=== PATIENT | female | born 1970 | race Caucasian/White ===

== ENCOUNTER 2016-07-20 09:10 | Emergency (ER) | payer OTHER ==
[~2016-07-20] VITALS: Ht 160 cm; Wt 109.3 kg
[~2016-07-20 09:10] MED LIST: ARIP1TAB5 PO; CARD240C6 PO; DESV25TA PO; DICL50TA3 PO; PRIL20CA9 PO
[2016-07-20 09:17] VITALS: BP 133/87; PULSE 79; RESP 16; TEMP 97.5; O2SAT 97
--- NOTE | 2016-07-20 09:44 | PD ---
HPI Chief Complaint: Skin Problem Time Seen by Provider: 09:26 Travel History International Travel<30 days: No Contact w/Intl Traveler<30days: No Traveled to known affect area: No History of Present Illness HPI This is a 45-year-old female who presents with pain, swelling and redness of her right elbow, constant since yesterday morning when she woke up with the symptoms, worsening throughout the day and the feeling like a burning sensation. She denies any associated fevers or chills. She's never had anything like this before. She thought maybe she got bit by something. Her has a history of MRSA. She is not on any immunosuppressive medications. PFSH Past Medical History Hx Anticoagulant Therapy: No Cardiovascular Problems: Yes (HTN) Diabetes: No Diminished Hearing: No Hypertension: Yes Neurologic: Yes (transverse myleitis) Psychiatric: Yes (mood disorder ) Tetanus Vaccination: > 5 Years Influenza Vaccination: No ?: Not Past Surgical History Hysterectomy: Yes Social History Alcohol Use: No Tobacco Use: Yes (1 ppd) Substance Use: No Allergies-Medications (Allergen,Severity, Reaction): Coded Allergies: No Known Allergies (Unverified , 07/20/16) Reported Meds & Prescriptions Reported Meds & Active Scripts Active Reported Contrave (Naltrexone-Bupropion) 8-90 Mg Tab 1 Tab PO BID Lisinopril 10 Mg Tab 10 Mg PO DAILY Cardizem CD 24 HR (Diltiazem CD 24 HR) 240 Mg Caper 240 Mg PO DAILY Prilosec (Omeprazole) 20 Mg Cap 20 Mg PO DAILY Review of Systems Except as stated in HPI: all other systems reviewed are Neg Physical Exam Narrative GENERAL:Well appearing, no acute distress SKIN: 10 x 10 cm area of warmth and erythema with no induration or fluctuance overlying the olecranon bursa extending down into the right forearm. HEAD: Atraumatic. Normocephalic. EYES: Pupils equal and round. No injection or drainage. ENT: Moist mucous membranes NECK: Trachea midline. CARDIOVASCULAR: Regular rate and rhythm. No murmur appreciated. RESPIRATORY: Clear to auscultation. Breath sounds equal bilaterally. GASTROINTESTINAL: Abdomen soft, non-tender, nondistended. MUSCULOSKELETAL: Full painless passive range of motion of the right elbow with no joint effusion. No fluctuance of the olecranon bursa but it is somewhat tender. NEUROLOGICAL: Awake and alert. No obvious cranial nerve deficits. Moving all extremities. PSYCHIATRIC: Appropriate mood and affect; insight and judgment normal. Data Data Last Documented VS Vital Signs Date Time Temp Pulse Resp B/P Pulse Ox O2 Delivery O2 Flow Rate FiO2 07/20/16 09:17 97.5 79 16 133/87 97 [facility] Medical Decision Making Medical Screen Exam Complete: Yes Emergency Medical Condition: Yes Interpretation(s) Afebrile Differential Diagnosis Cellulitis, olecranon bursitis, septic arthritis, sepsis Narrative Course This is a 45-year-old female who presents to the emergency department with 2 days of redness and warmth of her right elbow. She has a 10 x 10 cm area of cellulitis overlying the right elbow. She does have some tenderness of the olecranon bursa but no fluctuance and the cellulitis extends down to her forearm. I suspect this is more of a soft tissue infection then an acute bursitis. The area was marked and the patient will be started on antibiotics. I don't think she requires labs or further workup at this time and she is nontoxic appearing, has full range of motion of the elbow and I don't suspect a septic arthritis. I did advise her to return to the emergency department if she develops a fever or if her infection is worsening or spreading rapidly. She expressed understanding and is amenable to this plan. Diagnosis Primary Impression: Cellulitis of right elbow Patient Instructions: General Instructions Additional Instructions: If you develop fever, increasing redness, warmth, or spreading of your infection , or severe pain with moving the elbow, return to the emergency department immediately as you may require antibiotics through your IV. Complete your course of antibiotics as prescribed. Med/Other Pt SpecificInfo: Prescription(s) given Scripts Tramadol 50 Mg Tab50 Mg PO Q6H PRN (PAIN) #10 TAB Prov:Diana Penn MD 07/20/16 Clindamycin 300 Mg [id number] Mg PO TID 10 Days Prov:Diana Penn MD 07/20/16 Disposition: 01 DISCHARGE HOME Condition: Stable Diana Penn MD Jul 20, 2016 09:44
[2016-07-20] MEDS ORDERED: LISI10TA3 PO (09:45)
[2016-07-20] MEDS ORDERED: NALT1TAB3 PO (09:45)
[2016-07-20] MEDS ORDERED: CLINDAMYCIN PHOS 600 MG/4 ML VIAL IM ONE (09:45)
[2016-07-20] MEDS ORDERED: TRAM50TA PO (09:46)
[2016-07-20] MEDS ORDERED: CLIN1CAP6 PO (09:46)
[2016-07-20 10:39] VITALS: BP 132/86
== END 2016-07-20 10:40 | disposition home or self-care (01) ==
LOC: PHED 09:10
DX: L03.113 Cellulitis of right upper limb (principal); I10 Essential (primary) hypertension; F17.210 Nicotine dependence, cigarettes, uncomplicated
CPT/HCPCS: 96372

== ENCOUNTER 2017-01-03 20:45 | Emergency (ER) | payer OTHER, MEDICAID ==
[~2017-01-03] VITALS: Ht 160 cm; Wt 106.4 kg
[~2017-01-03 20:45] MED LIST changes: -ARIP1TAB5 PO; +CLIN1CAP6 PO; -DESV25TA PO; -DICL50TA3 PO; +LISI10TA3 PO; +NALT1TAB3 PO; +TRAM50TA PO
[2017-01-03 21:09] VITALS: BP 134/63; PULSE 82; RESP 18; TEMP 97.4; O2SAT 99
[2017-01-03] MEDS ORDERED: OMEP20TA PO (21:27)
[2017-01-03] MEDS ORDERED: FURO20TA PO (21:27)
[2017-01-03] MEDS ORDERED: POTA10TA2 PO (21:27)
[2017-01-03] MEDS ORDERED: POTA-163 PO (21:27)
--- NOTE | 2017-01-03 21:33 | PD ---
HPI Chief Complaint: musculoskeletal complaint Time Seen by Provider: 21:10 Travel History International Travel<30 days: No Contact w/Intl Traveler<30days: No History of Present Illness HPI 46-year-old female presents to the emergency room for evaluation of left knee pain after injuring it yesterday. Patient states she was standing at the store when she turned awkwardly. She heard a pop and felt immediate pain. States throughout the day it worsened with walking. It also caused her significant pain throughout the day today. Patient reports constant aching and worsening, sharp, severe pain with certain range of motion. Pain is localized to the left anterior patellar ligament. Denies paresthesias. She has been taking ibuprofen without any relief in symptoms. PFSH Past Medical History Hx Anticoagulant Therapy: No Cardiovascular Problems: Yes (HTN) Diabetes: No Diminished Hearing: No Hypertension: Yes Neurologic: Yes (transverse myleitis) Psychiatric: Yes (mood disorder ) Past Surgical History Hysterectomy: Yes Social History Alcohol Use: No Tobacco Use: Yes (1 ppd) Substance Use: No Allergies-Medications (Allergen,Severity, Reaction): Coded Allergies: No Known Allergies (Unverified , 07/20/16) Reported Meds & Prescriptions Reported Meds & Active Scripts Active Reported Furosemide 20 Mg Tab 20 Mg PO DAILY Potassium Chloride ER (Potassium Chloride) 10 Meq Tab 10 Meq PO DAILY Potassium Chloride ER (Potassium Chloride) 20 Meq Tab 20 Meq PO DAILY Omeprazole 20 Mg Tab 20 Mg PO DAILY Lisinopril 10 Mg Tab 10 Mg PO DAILY Cardizem CD 24 HR (Diltiazem CD 24 HR) 240 Mg Caper 240 Mg PO DAILY Review of Systems Except as stated in HPI: all other systems reviewed are Neg Physical Exam Narrative GENERAL: Well-nourished, well-developed female in no acute distress. Afebrile. Ambulatory. SKIN: Focused skin assessment warm/dry. No erythema or ecchymosis. HEAD: Normocephalic. EYES: No scleral icterus. No injection or drainage. NECK: Supple, trachea midline. No JVD or lymphadenopathy. CARDIOVASCULAR: Regular rate and rhythm without murmurs, gallops, or rubs. RESPIRATORY: Breath sounds equal bilaterally. No accessory muscle use. EXTREMITY: No obvious edema. Tenderness to palpation below the patella. No obvious deformity. 2+ dorsalis pedis pulse. Full range of motion of the left knee. Data Data Last Documented VS Vital Signs Date Time Temp Pulse Resp B/P Pulse Ox O2 Delivery O2 Flow Rate FiO2 01/03/17 21:09 97.4 82 18 134/63 99 Orders Knee, Complete (4vws) (01/03/17 ) [facility] Medical Decision Making Medical Screen Exam Complete: Yes Emergency Medical Condition: Yes Medical Record Reviewed: Yes Differential Diagnosis Sprain, fracture, dislocation, strain, muscle spasm Narrative Course 46-year-old female presents to the emergency room for evaluation of left knee pain after twisting her knee yesterday. She has been ambulatory since onset. Ibuprofen has not improved pain. Left lower extremity is neurovascularly intact with 2+ dorsalis pedis pulse. Full range of motion. No obvious edema, erythema, or ecchymosis. There is extreme tenderness to palpation over the left patellar tendon. Patient was informed x-ray will likely show no abnormality and that she will need to follow up with her primary care physician for outpatient MRI if symptoms persist. X-ray is negative. Patient placed in Sanchez wrap and discharged with orthopedic instructions and told to follow-up with her PCP or return for worsening symptoms. She understands and agrees to plan. Diagnosis Primary Impression: Left knee sprain Qualified Code: S83.92XA - Sprain of left knee, unspecified ligament, initial encounter Referrals: Primary Care Physician Patient Instructions: Knee Sprain (ED) Additional Instructions: Rest and drink plenty of fluids. Take ibuprofen with food as directed, as needed for pain. Elevate and apply ice to the affected area for 20 minutes at a time, as needed for pain and swelling. Follow-up with a primary care physician. Return to the emergency room for worsening symptoms. Med/Other Pt SpecificInfo: Prescription(s) given Disposition: 01 DISCHARGE HOME Condition: Stable Nilam Campo Jan 03, 2017 21:33
--- NOTE | 2017-01-03 22:02 | RADRPT ---
EXAM DATE/TIME: 01/03/2017 21:28 [facility] COMPARISON: No previous studies available for comparison. INDICATIONS : Left knee pain. MEDICAL HISTORY : Transverse Myelitis, Cardiac arrest SURGICAL HISTORY : Hysterectomy. Cardiac catheterization. ENCOUNTER: Initial ACUITY: 2 days PAIN SCORE: 9/10 LOCATION: Left knee FINDINGS: Four view examination of the left knee demonstrates no evidence of fracture or dislocation. Bony min eralization is normal. Mild degenerative changes without fracture. The suprapatellar soft tissues linares ve a normal configuration. CONCLUSION: Mild osteoarthritis without fracture. Rex Escudero MD on January 03, 2017 at 22:00 Board Certified Radiologist. This report was verified electronically.
== END 2017-01-03 22:31 | disposition home or self-care (01) ==
LOC: PHEFT 20:45
DX: S83.92XA Sprain of unspecified site of left knee, initial encounter (principal); X50.1XXA Overexertion from prolonged static or awkward postures, initial encounter; Y93.89 Activity, other specified; Y92.512 Supermarket, store or market as the place of occurrence of the external cause; I10 Essential (primary) hypertension; F17.210 Nicotine dependence, cigarettes, uncomplicated
CPT/HCPCS: 73564; 99283

== ENCOUNTER 2017-02-14 16:24 | Inpatient (IN) | payer OTHER, MEDICAID, MEDICARE ==
[~2017-02-14] VITALS: Ht 160 cm; Wt 112.3 kg
[~2017-02-14 16:24] MED LIST changes: -CLIN1CAP6 PO; +FURO20TA PO; -NALT1TAB3 PO; +OMEP20TA PO; +POTA-163 PO; +POTA10TA2 PO; -PRIL20CA9 PO; -TRAM50TA PO
[2017-02-14] MEDS ORDERED: GADODIAMIDE PF 287 MG/ML 20 ML VIAL (for RAD MRI) IVCONTRAST ONE (16:25)
[2017-02-14 16:30] VITALS: BP 137/67; PULSE 83; RESP 17; TEMP 97.7; O2SAT 95
[2017-02-14] MEDS ORDERED: VOLT100T PO (16:52)
[2017-02-14] MEDS ORDERED: LYRI200C PO (16:52)
[2017-02-14] MEDS ORDERED: POTA-163 PO (16:54)
[2017-02-14] MEDS ORDERED: FURO1TAB62 PO (16:54)
[2017-02-14] MEDS ORDERED: MEDR4PAK PO (16:56)
--- NOTE | 2017-02-14 16:58 | PD ---
HPI Chief Complaint: General Weakness Time Seen by Provider: 16:36 Travel History International Travel<30 days: No Contact w/Intl Traveler<30days: No Traveled to known affect area: No History of Present Illness HPI This 46-year-old female is complaining of generalized weakness. She says that about 10 years ago she had transverse myelitis. She was admitted to the hospital and had a fairly good recovery. At that time her left side was weaker than her right. She was not able to walk. Last Thursday she started having some electric shock sensations in her arm, especially her left arm. She has noted increasing weakness of the arm and the leg. She went to see her primary care doctor on Thursday and was started on a Medrol Dosepak. She was on his on the fifth day of the Medrol Dosepak. She was treated in [facility] at that time. Today she has had some incontinence of urine on 2 occasions. She has not had incontinence before. Her previous episode was 10 years ago in [place]. She was treated with a steroid drip and had a fairly prompt improvement. She did not have a complete recovery and she generally walks with a limp. 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 She was not diagnosed with multiple sclerosis at that time she does say her face was effected at that time [facility] Past Medical History Hx Anticoagulant Therapy: No Cardiac Catheterization: Yes Cardiovascular Problems: Yes (heart attack) Diabetes: No Diminished Hearing: No Hypertension: Yes Neurologic: Yes (transverse myleitis) Psychiatric: Yes (mood disorder ) Tubal Ligation: Yes Past Surgical History Genitourinary Surgery: Yes (bladder sling) Hysterectomy: Yes Social History Alcohol Use: No Tobacco Use: Yes (1 ppd) Substance Use: No Allergies-Medications (Allergen,Severity, Reaction): Coded Allergies: No Known Allergies (Unverified , 02/14/17) Reported Meds & Prescriptions Reported Meds & Active Scripts Active Reported Medrol Dosepak (Methylprednisolone) 4 Mg Dspk 4 Mg PO DIRECTED Per Pharmacist direction Potassium Chloride ER (Potassium Chloride) 20 Meq Tab 20 Meq PO DIRECTED Takes PRN for edema Lasix (Furosemide) 20 Mg Tab 20 Mg PO DIRECTED Takes PRN for edema Voltaren-Xr (Diclofenac Sodium) 100 Mg Tab.er.24h 1 Tab PO DAILY PRN Lyrica (Pregabalin) 200 Mg Cap 200 Mg PO TID Omeprazole 20 Mg Tab 40 Mg PO DAILY Lisinopril 10 Mg Tab 20 Mg PO BID Cardizem CD 24 HR (Diltiazem CD 24 HR) 240 Mg Caper 240 Mg PO DAILY Review of Systems General / Constitutional: No: Fever, Chills Eyes: No: Diploplia, Blurred Vision HENT: No: Headaches Cardiovascular: No: Chest Pain or Discomfort, Palpitations Respiratory: No: Cough, Shortness of Breath Gastrointestinal: No: Vomiting, Diarrhea Genitourinary: Positive: Urgency, Frequency, Incontinence Musculoskeletal: Positive: Weakness Physical Exam Narrative GENERAL: Well-developed female SKIN: Focused skin assessment warm/dry. HEAD: Atraumatic. Normocephalic. EYES: Pupils equal and round. No scleral icterus. No injection or drainage. ENT: No nasal bleeding or discharge. Mucous membranes pink and moist. NECK: Trachea midline. No JVD. CARDIOVASCULAR: Regular rate and rhythm. No murmur appreciated. RESPIRATORY: No accessory muscle use. Clear to auscultation. Breath sounds equal bilaterally. GASTROINTESTINAL: Abdomen soft, non-tender, nondistended. Hepatic and splenic margins not palpable. MUSCULOSKELETAL: No obvious deformities. No clubbing. No cyanosis. No edema. NEUROLOGICAL: Awake and alert. No obvious cranial nerve deficits. She has 4 over 5 weakness of the arms and the legs, the left side is weaker than the right. There is a left sided sensory deficit involving the trunk and the arms and the legs PSYCHIATRIC: Appropriate mood and affect; insight and judgment normal. Data Data Last Documented VS Vital Signs Date Time Temp Pulse Resp B/P (MAP) Pulse Ox O2 Delivery O2 Flow Rate FiO2 02/14/17 20:08 64 16 112/57 (75) 95 Room Air 02/14/17 16:30 97.7 Orders Orders Electrocardiogram (02/14/17 16:58) Complete Blood Count With Diff (02/14/17 16:58) Comprehensive Metabolic Panel (02/14/17 16:58) Prothrombin Time / Inr (Pt) (02/14/17 16:58) Act Partial Throm Time (Ptt) (02/14/17 16:58) Urinalysis - C+S If Indicated (02/14/17 16:58) Westergren Sedimentation Rate (02/14/17 16:58) Magnesium (Mg) (02/14/17 16:58) Thyroid Stimulating Hormone (02/14/17 16:58) Mri Brain W&W/O Contrast (02/14/17 17:00) Mri C Spine W&W/O Contrast (02/14/17 ) Urinary Catheter Insert/Apply (02/14/17 17:10) Phenazopyridine (Pyridium) (02/14/17 17:45) Urine Culture (02/14/17 17:20) Methylprednisolone So Succ Inj (Solumedr (02/14/17 20:15) Labs Laboratory Tests Test 02/14/17 17:10 02/14/17 17:20 White Blood Count 8.5 TH/MM3 Red Blood Count 3.76 MIL/MM3 Hemoglobin 12.0 GM/DL Hematocrit 36.3 % Mean Corpuscular Volume 96.6 FL Mean Corpuscular Hemoglobin 32.0 PG Mean Corpuscular Hemoglobin Concent 33.1 % Red Cell Distribution Width 12.8 % Platelet Count 195 TH/MM3 Mean Platelet Volume 10.1 FL Neutrophils (%) (Auto) 75.6 % Lymphocytes (%) (Auto) 14.5 % Monocytes (%) (Auto) 7.5 % Eosinophils (%) (Auto) 0.1 % Basophils (%) (Auto) 2.3 % Neutrophils # (Auto) 6.5 TH/MM3 Lymphocytes # (Auto) 1.2 TH/MM3 Monocytes # (Auto) 0.6 TH/MM3 Eosinophils # (Auto) 0.0 TH/MM3 Basophils # (Auto) 0.2 TH/MM3 CBC Comment DIFF FINAL Differential Comment Erythrocyte Sedimentation Rate 2 mm/hr Prothrombin Time 10.3 SEC Prothromb Time International Ratio 0.9 RATIO Activated Partial Thromboplast Time 24.3 SEC Blood Urea Nitrogen 17 MG/DL Creatinine 0.70 MG/DL Random Glucose 88 MG/DL Total Protein 6.5 GM/DL Albumin 3.3 GM/DL Calcium Level 8.4 MG/DL Magnesium Level 2.1 MG/DL Alkaline Phosphatase 45 U/L Aspartate Amino Transf (AST/SGOT) 28 U/L Alanine Aminotransferase (ALT/SGPT) 15 U/L Total Bilirubin 0.3 MG/DL Sodium Level 139 MEQ/L Potassium Level 4.6 MEQ/L Chloride Level 107 MEQ/L Carbon Dioxide Level 24.3 MEQ/L Anion Gap 8 MEQ/L Estimat Glomerular Filtration Rate 89 ML/MIN Thyroid Stimulating Hormone 3rd Gen 1.990 uIU/ML Urine Collection Type CLEAN CATCH Urine Color STRAW Urine Turbidity SLIGHT Urine pH 6.5 Urine Specific [place] 1.013 Urine Protein NEG mg/dL Urine Glucose (UA) NEG mg/dL Urine Ketones NEG mg/dL Urine Occult Blood SMALL Urine Nitrite NEG Urine Bilirubin NEG Urine Leukocyte Esterase NEG Urine RBC 4-9 /hpf Urine WBC 0-2 /hpf Urine Squamous Epithelial Cells > 8 /hpf Urine Amorphous Sediment FEW Urine Bacteria MOD /hpf Microscopic Urinalysis Comment CULTURE INDICATED Urine Collection Time 1720 [facility] Medical Decision Making Medical Screen Exam Complete: Yes Emergency Medical Condition: Yes Medical Record Reviewed: Yes Differential Diagnosis Differential includes transverse myelitis, CVA, MS Narrative Course MRI of the brain and spinal cord were obtained. On the MRI of the brain there is no acute hemorrhage or mass or infarction. There are small scattered punctate areas of increased signal on the flare weighted images area isn't thought to be nonspecific. On the cervical spine there is some motion artifact. The cord is intact with no abnormal enhancement or focal lesion. Case discussed with Dr. Troy and we will initiate high-dose steroids Diagnosis Primary Impression: Acute weakness Admitting Information Admitting Physician Requests: Admit Babak Joy MD Feb 14, 2017 16:58
[2017-02-14 17:21] LABS: AUTOMATED NEUTROPHIL # 6.5 TH/MM3 (1.8-7.7); BASOPHIL # 0.2 TH/MM3 (0-0.2); BASOPHIL % 2.3 % (0.0-2.0); EOSINOPHIL % 0.1 % (0.0-4.0); HEMATOCRIT 36.3 % (35.0-46.0); HEMO FLAGS DIFF FINAL; LYMPH % 14.5 % (9.0-44.0); LYMPHOCYTE # 1.2 TH/MM3 (1.0-4.8); MEAN CELL VOLUME 96.6 FL (80.0-100.0); MEAN CORPUSCULAR HGB CONC 33.1 % (32.0-36.0); MONO % 7.5 % (0.0-8.0); NEUT % 75.6 % (16.0-70.0); PLATELET COUNT 195 TH/MM3 (150-450); RED BLOOD COUNT 3.76 MIL/MM3 (4.00-5.30); RED CELL DISTRIBUTION WIDTH 12.8 % (11.6-17.2); WHITE BLOOD COUNT 8.5 TH/MM3 (4.0-11.0)
[2017-02-14 17:40] LABS: BLOOD, URINE SMALL (NEG); GLUCOSE,URINE NEG (NEG); KETONE, URINE NEG (NEG); NITRITE,URINE NEG (NEG); PH, URINE 6.5 (5.0-8.5)
[2017-02-14 17:41] LABS: CHLORIDE 107 MEQ/L (98-107); SODIUM (NA) 139 MEQ/L (136-145)
[2017-02-14 17:42] LABS: METHOD OF COLLECTION CLEAN CATCH; URINE COLOR STRAW (YELLW/STRAW)
[2017-02-14 17:45] LABS: ANION GAP 8 MEQ/L (5-15); BICARBONATE 24.3 MEQ/L (21.0-32.0); BLOOD UREA NITROGEN 17 MG/DL (7-18); MAGNESIUM 2.1 MG/DL (1.5-2.5)
[2017-02-14 17:45] LABS: BACTERIA, URINE MOD /hpf; COMMENT (UR) CULTURE INDICATED; COMMENT2 (UR) MUCOUS PRESENT; CULTURE IF INDICATED CULTURE INDICATED; SQUAMOUS EPITHELIAL CELL URINE > 8 /hpf (0-5); WBC, URINE 0-2 /hpf (0-5)
[2017-02-14] MEDS ORDERED: PHENAZOPYRIDINE HCL 200 MG TAB PO ONE (17:45)
[2017-02-14 17:46] LABS: APTT (PATIENT) 24.3 SEC (24.3-30.1); INTERNATIONAL NORMALIZED RATIO 0.9 RATIO; PROTHROMBIN TIME - PATIENT 10.3 SEC (9.8-11.6)
[2017-02-14 17:48] LABS: ALT (GPT) 15 U/L (10-53); AST (GOT) 28 U/L (15-37); GLOMERULAR FILTRATION RATE 89 ML/MIN (>89); POTASSIUM 4.6 MEQ/L (3.5-5.1)
[2017-02-14 17:49] LABS: TOTAL BILIRUBIN ADULT 0.3 MG/DL (0.2-1.0)
[2017-02-14 17:51] LABS: ALKALINE PHOSPHATASE 45 U/L (45-117)
--- NOTE | 2017-02-14 19:45 | RADRPT ---
EXAM DATE/TIME: 02/14/2017 18:41 [facility] COMPARISON: No previous studies available for comparison. INDICATIONS : Extremity weakness. Transverse myelitis, left side weakness. CONTRAST: 20 cc Omniscan (gadodiamide) IV MEDICAL HISTORY : Cardiovascular disease Hypertension. SURGICAL HISTORY : Hysterectomy. Bladder sling ENCOUNTER: Initial ACUITY: 1 day PAIN SCORE: 0/10 LOCATION: neck TECHNIQUE: Multiplanar, multisequence MRI examination of the cervical spine was performed. FINDINGS: The study is diffusely degraded by motion artifact. VERTEBRAE: Normal vertebral body height. Homogeneous marrow signal. ALIGNMENT: No evidence of subluxation. CORD: Normal configuration and signal. POST FOSSA: The cerebellar tonsils are normal in position. POST-CONTRAST: No abnormal areas of enhancement are seen. C2-C3: The thecal sac has a normal configuration. There is no evidence of disc herniation or spinal canal stenosis. The neural foramina are patent bilaterally. C3-C4: The thecal sac has a normal configuration. There is no evidence of disc herniation or spinal canal s tenosis. The neural foramina are patent bilaterally. C4-C5: The thecal sac has a normal configuration. There is no evidence of disc herniation or spinal canal s tenosis. The neural foramina are patent bilaterally. C5-C6: There is an annular disc bulge with mass effect on the anterior thecal sac. There is no evidence of d isc herniation or spinal canal stenosis. The neural foramina are patent bilaterally. C6-C7: There is an annular disc bulge with mass effect on the anterior thecal sac.. There is no evidence of disc herniation or spinal canal stenosis. The neural foramina are patent bilaterally. C7-T1: The thecal sac has a normal configuration. There is no evidence of disc herniation or spinal canal s tenosis. The neural foramina are patent bilaterally. CONCLUSION: 1. Suboptimal exam which is diffusely degraded by motion artifact. 2. The cervical cord is intact in appearance with no abnormal enhancement or focal lesion identified. 3. Annular disc bulges at C5-6 and C6-7 with mass effect on the thecal sac and no definite mass effec t on the cord. Roly Lambert MD on February 14, 2017 at 19:39 Board Certified Radiologist. This report was verified electronically.
--- NOTE | 2017-02-14 19:55 | RADRPT ---
EXAM DATE/TIME: 02/14/2017 18:41 [facility] COMPARISON: No previous studies available for comparison. INDICATIONS : Left side weakness. CONTRAST: 20 cc Omniscan (gadodiamide) IV MEDICAL HISTORY : Hypertension. Cardiovascular disease SURGICAL HISTORY : Hysterectomy. Bladder sling ENCOUNTER: Initial ACUITY: 1 day PAIN SCORE: 0/10 LOCATION: cranial TECHNIQUE: Multiplanar, multisequence MRI of the brain was performed both prior to and following the administrat ion of paramagnetic contrast. FINDINGS: CEREBRUM: The ventricles are normal for age. No evidence of midline shift, mass lesion, hemorrhage or acute in farction. No extraaxial fluid collections are seen. The pituitary gland and suprasellar cistern are normal in configuration. WHITE MATTER: On the flair weighted images there are multiple small punctate areas of increased signal in the white matter. POSTERIOR FOSSA: The cerebellum and brainstem are intact. The 4th ventricle is midline. The cerebellopontine angle is unremarkable. The cerebellar tonsils are normal in position. DIFFUSION IMAGING: No focal areas of restricted diffusion are seen. No evidence of acute infarction. EXTRACRANIAL: The visualized portions of the orbits and paranasal sinuses are unremarkable. POST-CONTRAST: No abnormal areas of parenchymal or dural enhancement. No evidence of blood-brain barrier breakdown. CONCLUSION: 1. No acute hemorrhage, mass or infarction. 2. On the flair weighted images there are multiple small scattered punctate areas of increased signal which are nonspecific. These may represent chronic small vessel ischemic change. Demyelination is le ss likely. Roly Lambert MD on February 14, 2017 at 19:51 Board Certified Radiologist. This report was verified electronically.
[2017-02-14 20:08] VITALS: BP 112/57; PULSE 64; RESP 16; O2SAT 95
[2017-02-14] MEDS ORDERED: methylPREDNISolone SO SUCC INJ 500 MG in DEXTROSE 5% IN WATER 100ML INJ 100 ML IV ONE ×2 (20:15)
[2017-02-14] MEDS ORDERED: LACTULOSE SYRUP 20 GM/30 ML CUP PO PRN (20:30)
[2017-02-14] MEDS ORDERED: MAGNESIUM HYDROXIDE SUSP 30 ML CUP PO PRN (20:30)
[2017-02-14] MEDS ORDERED: ACETAMINOPHEN 325 MG TAB PO PRN (20:30)
[2017-02-14] MEDS ORDERED: SENNOSIDES 8.6 MG TAB PO PRN (20:30)
[2017-02-14] MEDS ORDERED: ONDANSETRON HCL 4 MG/2 ML VIAL IVP PRN (20:30)
[2017-02-14] MEDS ORDERED: BISACODYL 10 MG SUPP RECTAL PRN (20:30)
[2017-02-14] MEDS ORDERED: SODIUM CHLORIDE 0.9% FLUSH 10 ML FLUSH IV FLUSH PRN (20:30)
[2017-02-14] MEDS: SODIUM CHLORIDE 0.9% FLUSH 10 ML FLUSH IV FLUSH SCH (21:00)
[2017-02-14 21:23] VITALS: BP 150/82; PULSE 72; RESP 18; TEMP 95.9; O2SAT 98
[2017-02-14] MEDS: LISINOPRIL 20 MG TAB PO SCH (21:48)
[2017-02-14] MEDS: SODIUM CHLOR 0.9% 1000 ML INJ 1,000 ML IV SCH (21:48)
[2017-02-14] MEDS: DOCUSATE SODIUM 50 MG/SENNA 8.6 MG TAB PO SCH (21:48)
[2017-02-14] MEDS: LORazepam 2 MG/ML VIAL IV PUSH PRN (21:49)
[2017-02-15 00:57] VITALS: BP 129/75; PULSE 76; RESP 16; TEMP 96.4; O2SAT 93
[2017-02-15] MEDS: ACETAMINOPHEN/HYDROcodone 325 MG/5 MG TAB PO PRN ×3 (02:42→17:51)
[2017-02-15 07:21] LABS: AUTOMATED NEUTROPHIL # 4.8 TH/MM3 (1.8-7.7); BASOPHIL % 0.6 % (0.0-2.0); EOSINOPHIL % 0.1 % (0.0-4.0); HEMATOCRIT 37.2 % (35.0-46.0); LYMPH % 15.4 % (9.0-44.0); LYMPHOCYTE # 0.9 TH/MM3 (1.0-4.8); MEAN CELL VOLUME 96.5 FL (80.0-100.0); MEAN CORPUSCULAR HEMOGLOBIN 31.4 PG (27.0-34.0); MEAN CORPUSCULAR HGB CONC 32.5 % (32.0-36.0); MONO % 1.1 % (0.0-8.0); NEUT % 82.8 % (16.0-70.0); PLATELET COUNT 171 TH/MM3 (150-450); RED BLOOD COUNT 3.86 MIL/MM3 (4.00-5.30); RED CELL DISTRIBUTION WIDTH 12.7 % (11.6-17.2); WHITE BLOOD COUNT 5.8 TH/MM3 (4.0-11.0)
[2017-02-15 07:30] LABS: HEMO FLAGS DIFF FINAL
[2017-02-15 07:33] LABS: CHLORIDE 105 MEQ/L (98-107); POTASSIUM 3.9 MEQ/L (3.5-5.1); SODIUM (NA) 139 MEQ/L (136-145)
[2017-02-15 07:37] LABS: ANION GAP 8 MEQ/L (5-15); BICARBONATE 25.8 MEQ/L (21.0-32.0); BLOOD UREA NITROGEN 16 MG/DL (7-18)
[2017-02-15 07:40] LABS: ALT (GPT) 14 U/L (10-53); AST (GOT) 6 U/L (15-37); GLOMERULAR FILTRATION RATE 88 ML/MIN (>89)
[2017-02-15 07:42] LABS: TOTAL BILIRUBIN ADULT 0.3 MG/DL (0.2-1.0)
[2017-02-15 07:43] LABS: ALKALINE PHOSPHATASE 43 U/L (45-117)
[2017-02-15 08:00] VITALS: BP 139/86; PULSE 61; RESP 20; TEMP 97.6; O2SAT 93
[2017-02-15] MEDS: SODIUM CHLOR 0.9% 1000 ML INJ 1,000 ML IV SCH ×2 (08:07→19:58)
[2017-02-15] MEDS: DOCUSATE SODIUM 50 MG/SENNA 8.6 MG TAB PO SCH ×2 (08:09→19:59)
[2017-02-15] MEDS: PANTOPRAZOLE SOD 40 MG DELAYED RELEASE TAB PO SCH (08:09)
[2017-02-15] MEDS: DILTIAZEM-CD 240 MG CAP ER PO SCH (08:09)
[2017-02-15] MEDS: LISINOPRIL 20 MG TAB PO SCH ×2 (08:09→19:59)
[2017-02-15] MEDS: SODIUM CHLORIDE 0.9% FLUSH 10 ML FLUSH IV FLUSH SCH ×2 (08:10→19:58)
[2017-02-15] MEDS: FUROSEMIDE 20 MG TAB PO SCH (08:10)
[2017-02-15] MEDS: PREGABALIN 100 MG CAP PO SCH ×3 (08:10→17:48)
--- NOTE | 2017-02-15 08:42 | HHI.HP ---
HPI Service [facility] Hospitalists Primary Care Physician Non-Staff Admission Diagnosis ACUTE WEAKNESS, POSS MYELOPATHY Diagnoses: (1) Neurological complaint Diagnosis: Principal (2) Hypertension Diagnosis: Secondary Chief Complaint: Paresthesia, weakness. Travel History International Travel<30 Days: No Contact w/Intl Traveler <30 Da: No Traveled to Known Affected Are: No History of Present Illness Written by Abraham Mtz, acting as scribe for Dr. Arteaga on 02/15/17 at 08: 32. 46-year-old female with known history of hypertension, chronic smoker , irritable bowel syndrome, history of transverse myelitis who presented to hospital because of one week history of neurological symptoms. She states that a week ago she started developing paresthesia and achy sensation in her left arm , leg heaviness whenever she ambulated. She went to her primary medical doctor and was given a Medrol Dosepak, she is on her fifth day and she did not have any significant improvement. She started developing some urinary urgency with which he described is sensation of not completely emptying her bladder. She states that she has transverse myelitis in her last acute episode was 10 years ago. She indicates that her symptoms she is experiencing now is the same as she had first diagnosis of her condition. Patient has received IV steroids and she states that she is feeling much better. Symptoms are almost completely resolved. Patient denies any headache, visual disturbances, dysphagia, she has chronic ambulation issues with walking with the lab, however no acute unilateral numbness or disequilibrium. Denies any loss of bowel control. Patient had workup done emergency department, ER physician did speak with neurologist on-call who recommended IV steroids. Review of Systems Genitourinary: COMPLAINS OF: Urinary incontinence, Urgency Neurologic: COMPLAINS OF: Abnormal gait, Localized weakness, Paresthesias Except as stated in HPI: all other systems reviewed are Neg Past Family Social History Past Medical History Hypertension History of transverse myelitis Chronic smoker, irritable bowel syndrome History of myocardial infarction Past Surgical History Cardiac catheterization with normal findings Bladder sling Tubal ligation Hysterectomy Allergies: Coded Allergies: No Known Allergies (Unverified , 02/14/17) Family History Father alive is 70 years old with history of prostate cancer, mother alive at age 68 with lupus, diabetes, thyroid Social History Patient continues to smoke one pack a cigarettes a day since she was 15 years old. She denies any alcohol or illicit drugs Physical Exam Vital Signs Vital Signs Date Time Temp Pulse Resp B/P (MAP) Pulse Ox O2 Delivery O2 Flow Rate FiO2 02/15/17 04:56 02/15/17 00:57 96.4 76 16 129/75 (93) 93 02/14/17 21:23 95.9 72 18 150/82 (104) 98 02/14/17 21:10 62 18 95 02/14/17 20:08 64 16 112/57 (75) 95 Room Air 02/14/17 16:30 97.7 83 17 137/67 (90) 95 Physical Exam GENERAL: Well-developed, well-nourished, in no acute distress. alert and orientated HEENT: Head is normocephalic without any lesions or masses noted. Facial features are symmetric. Eyes: Pupils equal round reactive to light. Extraocular muscles are intact. Conjunctivae were clear. Oropharyngeal: Pharynx without any erythema edema. Tongue is midline without deviation. Buccal mucosa is moist without any masses or lesions NECK: Supple without any masses. Trachea midline no deviation. No JVD, no bruits are appreciated CARDIAC: Regular rhythm, regular rate. S1/S2 are heard. No murmurs gallops or rubs. LUNGS: Clear to auscultation bilaterally. No wheeze, rhonchi or rales. No use of accessory muscles on inspiration or expiration. ABDOMEN: Soft, nontender. Nondistended. Bowel sounds heard in all 4 quadrants. No organomegaly or masses. Negative rebound, negative guarding EXTREMITIES: No edema, pulses are equal bilaterally. No cyanosis or clubbing NEUROLOGY: Mood and affect appear appropriate. Cranial nerves II through XII grossly intact. Muscle strength 5/5 in upper and lower extremities bilaterally. Deep tendon reflexes are 2+ in upper and lower extremities bilaterally. Laboratory Laboratory Tests Test 02/14/17 17:10 02/14/17 17:20 02/15/17 06:20 White Blood Count 8.5 5.8 Red Blood Count 3.76 3.86 Hemoglobin 12.0 12.1 Hematocrit 36.3 37.2 Mean Corpuscular Volume 96.6 96.5 Mean Corpuscular Hemoglobin 32.0 31.4 Mean Corpuscular Hemoglobin Concent 33.1 32.5 Red Cell Distribution Width 12.8 12.7 Platelet Count 195 171 Mean Platelet Volume 10.1 10.1 Neutrophils (%) (Auto) 75.6 82.8 Lymphocytes (%) (Auto) 14.5 15.4 Monocytes (%) (Auto) 7.5 1.1 Eosinophils (%) (Auto) 0.1 0.1 Basophils (%) (Auto) 2.3 0.6 Neutrophils # (Auto) 6.5 4.8 Lymphocytes # (Auto) 1.2 0.9 Monocytes # (Auto) 0.6 0.1 Eosinophils # (Auto) 0.0 0.0 Basophils # (Auto) 0.2 0.0 CBC Comment DIFF FINAL DIFF FINAL Differential Comment Erythrocyte Sedimentation Rate 2 Prothrombin Time 10.3 Prothromb Time International Ratio 0.9 Activated Partial Thromboplast Time 24.3 Blood Urea Nitrogen 17 16 Creatinine 0.70 0.71 Random Glucose 88 111 Total Protein 6.5 6.2 Albumin 3.3 3.2 Calcium Level 8.4 8.7 Magnesium Level 2.1 Alkaline Phosphatase 45 43 Aspartate Amino Transf (AST/SGOT) 28 6 Alanine Aminotransferase (ALT/SGPT) 15 14 Total Bilirubin 0.3 0.3 Sodium Level 139 139 Potassium Level 4.6 3.9 Chloride Level 107 105 Carbon Dioxide Level 24.3 25.8 Anion Gap 8 8 Estimat Glomerular Filtration Rate 89 88 Thyroid Stimulating Hormone 3rd Gen 1.990 Urine Collection Type CLEAN CATCH Urine Color STRAW Urine Turbidity SLIGHT Urine pH 6.5 Urine Specific Knapp 1.013 Urine Protein NEG Urine Glucose (UA) NEG Urine Ketones NEG Urine Occult Blood SMALL Urine Nitrite NEG Urine Bilirubin NEG Urine Leukocyte Esterase NEG Urine RBC 4-9 Urine WBC 0-2 Urine Squamous Epithelial Cells > 8 Urine Amorphous Sediment FEW Urine Bacteria MOD Microscopic Urinalysis Comment CULTURE INDICATED Urine Collection Time 1720 Date/Time Source Procedure Growth Status 02/14/17 17:20 Urine Clean Catch Urine Culture Pending Received Result Diagram: 02/15/17 0620 02/15/17 0620 Imaging Last Impressions Brain MRI 02/14/17 1700 Signed Impressions: Service Date/Time: Tuesday, February 14, 2017 18:41 - CONCLUSION: 1. No acute hemorrhage, mass or infarction. 2. On the flair weighted images there are multiple small scattered punctate areas of increased signal which are nonspecific. These may represent chronic small vessel ischemic change. Demyelination is less likely. Roly Lambert MD Cervical Spine MRI 02/14/17 0000 Signed Impressions: Service Date/Time: Tuesday, February 14, 2017 18:41 - CONCLUSION: 1. Suboptimal exam which is diffusely degraded by motion artifact. 2. The cervical cord is intact in appearance with no abnormal enhancement or focal lesion identified. 3. Annular disc bulges at C5-6 and C6-7 with mass effect on the thecal sac and no definite mass effect on the cord. Roly Lambert MD Caprini VTE Risk Assessment Caprini VTE Risk Assessment: No/Low Risk (score <= 1) Caprini Risk Assessment Model Point Value = 1 Point Value = 2 Point Value = 3 Point Value = 5 Age 41-60 Minor surgery BMI > 25 kg/m2 Swollen legs Varicose veins or History of unexplained or recurrent spontaneous Oral contraceptives or hormone replacement Sepsis (< 1 month) Serious lung disease, including pneumonia (< 1 month) Abnormal pulmonary function Acute myocardial infarction Congestive heart failure (< 1 month) History of inflammatory bowel disease Medical patient at bed rest Age 61-74 Arthroscopic surgery Major open surgery (> 45 min) Laparoscopic surgery (> 45 min) Malignancy Confined to bed (> 72 hours) Immobilizing plaster cast Central venous access Age >= 75 History of VTE Family history of VTE Factor V Leiden Prothrombin [id number] Lupus anticoagulant Anticardiolipin antibodies Elevated serum homocysteine Heparin-induced thrombocytopenia Other congenital or acquired thrombophilia Stroke (< 1 month) Elective arthroplasty Hip, pelvis, or leg fracture Acute spinal cord injury (< 1 month) Prophylaxis Regimen Total Risk Factor Score Risk Level Prophylaxis Regimen 0-1 Low Early ambulation 2 Moderate Order ONE of the following: *Sequential Compression Device (SCD) *Heparin 5000 units SQ BID 3-4 Higher Order ONE of the following medications: *Heparin 5000 units SQ TID *Enoxaparin/Lovenox 40 mg SQ daily (WT < 150 kg, CrCl > 30 mL/min) *Enoxaparin/Lovenox 30 mg SQ daily (WT < 150 kg, CrCl > 10-29 mL/min) *Enoxaparin/Lovenox 30 mg SQ BID (WT < 150 kg, CrCl > 30 mL/min) AND/OR *Sequential Compression Device (SCD) 5 or more Highest Order ONE of the following medications: *Heparin 5000 units SQ TID (Preferred with Epidurals) *Enoxaparin/Lovenox 40 mg SQ daily (WT < 150 kg, CrCl > 30 mL/min) *Enoxaparin/Lovenox 30 mg SQ daily (WT < 150 kg, CrCl > 10-29 mL/min) *Enoxaparin/Lovenox 30 mg SQ BID (WT < 150 kg, CrCl > 30 mL/min) AND *Sequential Compression Device (SCD) Assessment and Plan Problem List: (1) Neurological complaint ICD Code: R29.90 - Unspecified symptoms and signs involving the nervous system Plan: Patient with known history of transverse myelitis, presented with multiple symptoms to include left arm paresthesia, weakness, lower extremity leg heaviness, urinary incontinence. Patient indicates these are same symptoms that she experienced 10 years ago when she had her first episode of transverse myelitis. Patient had MRI performed which did not indicate any acute neurological etiology. Patient has been given steroid infusion 1 with significant improvement of her symptoms. Neurology has been consulted for further recommendations. Further plans per neurology (2) Hypertension ICD Code: I10 - Essential (primary) hypertension Plan: Blood pressure stable this time. Home medications have been continued Assessment and Plan DVT prevention: Sequential compression devices Physician Certification 2 Midnight Certification Type: Admission for Inpatient Services Order for Inpatient Services The services are ordered in accordance with Medicare regulations or non- Medicare payer requirements, as applicable. In the case of services not specified as inpatient-only, they are appropriately provided as inpatient services in accordance with the 2-midnight benchmark. Estimated LOS (days): 2 days is the estimated time the patient will need to remain in the hospital, assuming treatment plan goals are met and no additional complications. Post-Hospital Plan: Not yet determined Medical Decision Making Impression and Plan This note was transcribed by mally ernandez I, Dr. Zuleima Arteaga personally performed the history, physical exam, and medical decision making; and confirmed the accuracy of the information in the transcribed note. Authenticated by Dr. Zuleima Arteaga on 02/15/17 at 08:44. Problem Qualifiers (1) Hypertension: Qualified Codes: I10 - Essential (primary) hypertension Abraham Mtz Feb 15, 2017 08:42 Zuleima Arteaga MD Feb 15, 2017 08:44
[2017-02-15] MEDS ORDERED: methylPREDNISolone SOD SUCC 125 MG/2 ML VIAL IV PUSH SCH (09:00)
--- NOTE | 2017-02-15 09:22 | EKG ---
Date Performed: 02/14/2017 Time Performed: 17:13:20 PTAGE: 46 years EKG: Sinus rhythm NORMAL ECG NO PREVIOUS TRACING DOCTOR: Prabhjot Mahoney Interpretating Date/Time 02/15/2017 09:21:00
[2017-02-15] MEDS: methylPREDNISolone SO SUCC INJ 500 MG in DEXTROSE 5% IN WATER 100ML INJ 100 ML IV SCH ×4 (09:35→19:58)
[2017-02-15] MEDS: LORazepam 2 MG/ML VIAL IV PUSH PRN ×3 (09:36→19:59)
--- NOTE | 2017-02-15 10:49 | MB ---
cc: KRISTIAN WARREN M.D. DATE OF CONSULTATION: 02/15/2017. REASON FOR CONSULTATION: Transverse myelitis. HISTORY OF PRESENT ILLNESS: The patient a pleasant 46-year-old woman with history hypertension, irritable bowel syndrome, history of transverse myelitis who had been extensively evaluated in [place] I am told who comes in because of paresthesias in the left arm and leg with heaviness of the leg. She was given a Medrol Dosepak by her primary care doctor but did not improve and came into the hospital. She also had trouble voiding her bladder. They had to straight cath her and there was quite a bit of urine, she states, over 1200 cc. She is doing much better this morning after two doses of Solu-Medrol. She is actually walking a lot better. Her symptoms in the arms have improved. PAST MEDICAL HISTORY: She has a history as stated with an addition of possible myocardial infarction. PAST SURGICAL HISTORY: 1. Cardiac catheterization normal. 2. Bladder sling. 3. Tubal ligation. 4. Hysterectomy. SOCIAL HISTORY: She is . She is a chronic smoker. She smokes one pack of cigarettes a day. No alcohol. No drugs. ALLERGIES: None reported. FAMILY HISTORY: Father history of prostate cancer. Mother lupus, diabetes, thyroid. PHYSICAL EXAMINATION: VITAL SIGNS: Temperature is 97.6, pulse 61, respiratory rate 18, blood pressure 139/86. NECK: The neck is supple. HEART: Regular. NEUROLOGICAL EXAMINATION: She is awake and alert and she is oriented and fluent. The pupils are reactive. Face symmetrical. Tongue midline. 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 There is no drift. No leg lag. She has decreased sensory on the left compared to the right. She does have a right Gabby's and slightly brisk reflexes in the extremities with no clonus. Cerebellar testing normal. Gait is withheld for physical therapy. LABORATORY STUDIES: Her labs are reviewed. Sedimentation rate is 2. CBC reviewed as well. Chemistries: Albumin 3.2. TSH 1.990. GFR 88, glucose 111. Coag panel normal. Urine - small occult blood. Culture is indicated and is pending. IMAGING STUDIES: Brain MRI did not see anything acute. Cervical spine - there was no abnormal enhancement but I do see of old signs of a transverse myelitis of C3-C5. IMPRESSION: Recurring symptoms in a patient with transverse myelitis. PLAN: 1. Continue Solu-Medrol 500 milligrams q.12 h for a total of three days six doses. 2. Physical therapy evaluation. 3. Occupational therapy evaluation. 4. If stable can be discharged in 24 hours and have her follow up as an outpatient with neurology. 5. Continue current care as outlined. Discussed with the patient. MD SANTA Wolf/AGATHA /10:25 AM /10:38 AM
[2017-02-15 12:00] VITALS: BP 131/74; PULSE 77; RESP 20; TEMP 97.7; O2SAT 94
[2017-02-15] MEDS: cefTRIAXone INJ 1,000 MG in SODIUM CHLORIDE 0.9% INJ 100 ML IV SCH (13:02)
[2017-02-15 16:00] VITALS: BP 129/78; PULSE 75; RESP 20; TEMP 97.8; O2SAT 96
[2017-02-15 20:00] VITALS: BP 133/63; PULSE 88; RESP 16; TEMP 99.3; O2SAT 92
[2017-02-15] MEDS: MORPHINE SULFATE 4 MG/ML INJ IV PRN (20:00)
[2017-02-16] VITALS: BP 122/62; PULSE 81; RESP 18; TEMP 98.1; O2SAT 90
[2017-02-16] MEDS: SODIUM CHLOR 0.9% 1000 ML INJ 1,000 ML IV SCH (06:42)
[2017-02-16] MEDS: MORPHINE SULFATE 4 MG/ML INJ IV PRN ×2 (06:43→09:05)
[2017-02-16 08:00] VITALS: BP 121/76; PULSE 75; RESP 19; TEMP 97.6; O2SAT 94
[2017-02-16] MEDS: PREGABALIN 100 MG CAP PO SCH ×2 (09:00→12:13)
[2017-02-16] MEDS: SODIUM CHLORIDE 0.9% FLUSH 10 ML FLUSH IV FLUSH SCH (09:00)
[2017-02-16] MEDS: DILTIAZEM-CD 240 MG CAP ER PO SCH (09:01)
[2017-02-16] MEDS: FUROSEMIDE 20 MG TAB PO SCH (09:01)
[2017-02-16] MEDS: PANTOPRAZOLE SOD 40 MG DELAYED RELEASE TAB PO SCH (09:02)
[2017-02-16] MEDS: methylPREDNISolone SO SUCC INJ 500 MG in DEXTROSE 5% IN WATER 100ML INJ 100 ML IV SCH ×2 (09:02)
[2017-02-16] MEDS: LISINOPRIL 20 MG TAB PO SCH (09:02)
[2017-02-16] MEDS: DOCUSATE SODIUM 50 MG/SENNA 8.6 MG TAB PO SCH (09:02)
[2017-02-16] MEDS: LORazepam 2 MG/ML VIAL IV PUSH PRN (09:03)
[2017-02-16 10:00] VITALS: RESP 18
[2017-02-16] MEDS ORDERED: MEDR4PAK PO (10:45)
[2017-02-16] MEDS ORDERED: PERC5TAB12 PO (10:45)
--- NOTE | 2017-02-16 10:47 | HHI.DCPOC ---
Discharge Care Plan Diagnosis: (1) Acute weakness Goals to Promote Your Health * To prevent worsening of your condition and complications * To maintain your health at the optimal level Directions to Meet Your Goals Take your medications as prescribed Follow your dietary instruction Follow activity as directed Keep your appointments as scheduled Take your immunizations and boosters as scheduled If your symptoms worsen call your PCP, if no PCP go to Urgent Care Center or Emergency Room Smoking is Dangerous to Your Health. Avoid second hand smoke Call the 24-hour hour crisis hotline for domestic abuse at Zuleima Arteaga MD Feb 16, 2017 10:47
--- NOTE | 2017-02-16 10:49 | HHI.DS ---
cc: Lakesha Troy MD Discharge Summary Admission Date Feb 14, 2017 at 20:17 Discharge Date: Feb 16, 2017 Admitting Diagnosis ACUTE WEAKNESS, POSS MYELOPATHY (1) Neurological complaint ICD Code: R29.90 - Unspecified symptoms and signs involving the nervous system (2) Hypertension ICD Code: I10 - Essential (primary) hypertension Procedures none Brief History - From Admission Written by Abraham Mtz, acting as scribe for Dr. Arteaga on 02/15/17 at 08: 32. 46-year-old female with known history of hypertension, chronic smoker , irritable bowel syndrome, history of transverse myelitis who presented to hospital because of one week history of neurological symptoms. She states that a week ago she started developing paresthesia and achy sensation in her left arm , leg heaviness whenever she ambulated. She went to her primary medical doctor and was given a Medrol Dosepak, she is on her fifth day and she did not have any significant improvement. She started developing some urinary urgency with which he described is sensation of not completely emptying her bladder. She states that she has transverse myelitis in her last acute episode was 10 years ago. She indicates that her symptoms she is experiencing now is the same as she had first diagnosis of her condition. Patient has received IV steroids and she states that she is feeling much better. Symptoms are almost completely resolved. Patient denies any headache, visual disturbances, dysphagia, she has chronic ambulation issues with walking with the lab, however no acute unilateral numbness or disequilibrium. Denies any loss of bowel control. Patient had workup done emergency department, ER physician did speak with neurologist on-call who recommended IV steroids. CBC/BMP: 02/15/17 0620 02/15/17 0620 Significant Findings Laboratory Tests Test 02/14/17 17:10 02/14/17 17:20 02/15/17 06:20 Red Blood Count 3.76 MIL/MM3 (4.00-5.30) 3.86 MIL/MM3 (4.00-5.30) Neutrophils (%) (Auto) 75.6 % (16.0-70.0) 82.8 % (16.0-70.0) Basophils (%) (Auto) 2.3 % (0.0-2.0) Albumin 3.3 GM/DL (3.4-5.0) 3.2 GM/DL (3.4-5.0) Calcium Level 8.4 MG/DL (8.5-10.1) Urine Occult Blood SMALL (NEG) Urine RBC 4-9 /hpf (0-3) Urine Squamous Epithelial Cells > 8 /hpf (0-5) Urine Bacteria MOD /hpf (NONE) Lymphocytes # (Auto) 0.9 TH/MM3 (1.0-4.8) Random Glucose 111 MG/DL (74-106) Total Protein 6.2 GM/DL (6.4-8.2) Alkaline Phosphatase 43 U/L (45-117) Aspartate Amino Transf (AST/SGOT) 6 U/L (15-37) Estimat Glomerular Filtration Rate 88 ML/MIN (>89) Imaging Last Impressions Brain MRI 02/14/17 1700 Signed Impressions: Service Date/Time: Tuesday, February 14, 2017 18:41 - CONCLUSION: 1. No acute hemorrhage, mass or infarction. 2. On the flair weighted images there are multiple small scattered punctate areas of increased signal which are nonspecific. These may represent chronic small vessel ischemic change. Demyelination is less likely. Roly Lambert MD Cervical Spine MRI 02/14/17 0000 Signed Impressions: Service Date/Time: Tuesday, February 14, 2017 18:41 - CONCLUSION: 1. Suboptimal exam which is diffusely degraded by motion artifact. 2. The cervical cord is intact in appearance with no abnormal enhancement or focal lesion identified. 3. Annular disc bulges at C5-6 and C6-7 with mass effect on the thecal sac and no definite mass effect on the cord. Roly Lambert MD PE at Discharge GENERAL: This is a well-nourished, well-developed patient, in no apparent distress. CARDIOVASCULAR: Regular rate and rhythm without murmurs, gallops, or rubs. RESPIRATORY: Clear to auscultation. Breath sounds equal bilaterally. No wheezes , rales, or rhonchi. GASTROINTESTINAL: Abdomen soft, non-tender, nondistended. Normal active bowel sounds MUSCULOSKELETAL: Extremities without clubbing, cyanosis, or edema. NEURO: Alert & Oriented x4 to person, place, time, situation. Moves all ext x4 Pt update on day of discharge Patient seen today in follow-up for weakness related to her previous diagnosis of transverse myelitis. Patient says her pain and discomfort with numbness and tingling is resolved. She is tolerating steroids with minimal side effects than the headache. She does feel she is at her baseline and has requested to go home. Discharge plans discussed with patient and spouse Hospital Course Patient is a 46-year-old female with a known history of transverse myelitis. She has similar symptoms and came to the emergency room for further evaluation. She required IV steroids and improved her symptoms quite dramatically. Patient was seen by neurology. Images were unremarkable for any stroke or brain lesions. Patient was discharged home Pt Condition on Discharge: Good Discharge Disposition: Discharge Home Discharge Time: <= 30 minutes Discharge Instructions DIET: Follow Instructions for: As Tolerated, No Restrictions Activities you can perform: Regular-No Restrictions Follow up Referrals: Neurology - 2 Weeks with Lakesha Troy MD PCP Follow-up - 1 Week New Medications: Oxycodone-Acetaminophen (Percocet) 5-325 mg Tab 1 TAB PO Q6H PRN for PAIN, #20 TAB 0 Refills Continued Medications: Diclofenac Sodium (Voltaren-Xr) 100 Mg Tab.er.24h 1 TAB PO DAILY PRN for HEADACHE Diltiazem CD 24 HR (Cardizem CD 24 HR) 240 Mg Caper 240 MG PO DAILY, #30 CAP 0 Refills Furosemide (Lasix) 20 Mg Tab 20 MG PO DIRECTED, #30 TAB 0 Refills Takes PRN for edema Lisinopril (Lisinopril) 10 Mg Tab 20 MG PO BID, #30 TAB 0 Refills Methylprednisolone Dosepak (Medrol Dosepak) 4 Mg Dspk 4 MG PO DIRECTED, #1 DSPK 0 Refills (This prescription has been renewed) Per Pharmacist direction Omeprazole (Omeprazole) 20 Mg Tab 40 MG PO DAILY, #30 TAB 0 Refills Potassium Chloride ER (Potassium Chloride ER) 20 Meq Tab 20 MEQ PO DIRECTED for Electrolyte Replacement, #30 TAB 0 Refills Takes PRN for edema Pregabalin (Lyrica) 200 Mg Cap 200 MG PO TID, #90 CAP 0 Refills Zuleima Arteaga MD Feb 16, 2017 10:49
[2017-02-16] MEDS ORDERED: MEDR8TAB PO (10:56)
[2017-02-16] MEDS: cefTRIAXone INJ 1,000 MG in SODIUM CHLORIDE 0.9% INJ 100 ML IV SCH (11:35)
[2017-02-17] MEDS ORDERED: NORC5TAB PO (10:17)
== END 2017-02-16 12:43 | disposition home or self-care (01) | DRG 99 ==
LOC: PHED 16:24 → PHEDA 20:17 → PH3B 21:01
PROVIDERS: ADMIT Hospitalist; ATTEND Hospitalist
DX: G37.3 Acute transverse myelitis in demyelinating disease of central nervous system (principal); I10 Essential (primary) hypertension; F17.210 Nicotine dependence, cigarettes, uncomplicated; K58.9 Irritable bowel syndrome, unspecified; R39.15 Urgency of urination; I25.2 Old myocardial infarction
CPT/HCPCS: 51702; 70553; 72156; 80053; 81001; 83735; 84443; 85025; 85610; 85652; 85730; 87077; 87086; 87186; 93005; A9579; J0696; J2060; J2270; J2930; J7030

== ENCOUNTER 2017-02-24 15:22 | Emergency (ER) | payer MEDICAID, MEDICARE, OTHER ==
[~2017-02-24 15:22] MED LIST changes: +FURO1TAB62 PO; -FURO20TA PO; +LYRI200C PO; +MEDR8TAB PO; +NORC5TAB PO; -POTA10TA2 PO; +VOLT100T PO
[2017-02-24 15:42] VITALS: BP 144/69; PULSE 75; RESP 20; TEMP 97.7; O2SAT 95
[2017-02-24 17:34] VITALS: BP 119/63; PULSE 68; RESP 16; O2SAT 97
[2017-02-24] MEDS ORDERED: ACETAMINOPHEN/HYDROcodone 325 MG/5 MG TAB PO ONE (18:15)
[2017-02-24] MEDS ORDERED: SODIUM CHLORIDE 0.9% FLUSH 10 ML FLUSH IV FLUSH PRN (18:15)
[2017-02-24] MEDS ORDERED: methylPREDNISolone SO SUCC INJ 250 MG in DEXTROSE 5% IN WATER 100ML INJ 100 ML IV ONE ×2 (18:15)
[2017-02-24 18:39] LABS: AUTOMATED NEUTROPHIL # 5.3 TH/MM3 (1.8-7.7); BASOPHIL # 0.1 TH/MM3 (0-0.2); BASOPHIL % 1.1 % (0.0-2.0); EOSINOPHIL # 0.1 TH/MM3 (0-0.4); EOSINOPHIL % 1.6 % (0.0-4.0); HEMATOCRIT 36.4 % (35.0-46.0); HEMO FLAGS DIFF FINAL; LYMPH % 26.2 % (9.0-44.0); LYMPHOCYTE # 2.3 TH/MM3 (1.0-4.8); MEAN CELL VOLUME 97.3 FL (80.0-100.0); MEAN CORPUSCULAR HEMOGLOBIN 32.4 PG (27.0-34.0); MEAN CORPUSCULAR HGB CONC 33.3 % (32.0-36.0); MONO % 8.8 % (0.0-8.0); NEUT % 62.3 % (16.0-70.0); PLATELET COUNT 233 TH/MM3 (150-450); RED BLOOD COUNT 3.74 MIL/MM3 (4.00-5.30); RED CELL DISTRIBUTION WIDTH 13.8 % (11.6-17.2); WHITE BLOOD COUNT 8.6 TH/MM3 (4.0-11.0)
[2017-02-24 18:42] LABS: BLOOD, URINE SMALL (NEG); GLUCOSE,URINE NEG (NEG); KETONE, URINE NEG (NEG); NITRITE,URINE NEG (NEG); PH, URINE 6.5 (5.0-8.5)
[2017-02-24 18:49] LABS: CHLORIDE 103 MEQ/L (98-107); POTASSIUM 4.2 MEQ/L (3.5-5.1); SODIUM (NA) 137 MEQ/L (136-145)
[2017-02-24 18:53] LABS: ANION GAP 5 MEQ/L (5-15); BICARBONATE 28.6 MEQ/L (21.0-32.0); BLOOD UREA NITROGEN 20 MG/DL (7-18)
[2017-02-24 18:55] LABS: INTERNATIONAL NORMALIZED RATIO 0.9 RATIO; PROTHROMBIN TIME - PATIENT 9.6 SEC (9.8-11.6)
[2017-02-24 18:56] LABS: ALT (GPT) 23 U/L (10-53); AST (GOT) 12 U/L (15-37); GLOMERULAR FILTRATION RATE 88 ML/MIN (>89)
[2017-02-24 18:58] LABS: TOTAL BILIRUBIN ADULT 0.4 MG/DL (0.2-1.0)
[2017-02-24 18:59] LABS: ALKALINE PHOSPHATASE 48 U/L (45-117)
[2017-02-24 19:01] LABS: BACTERIA, URINE FEW /hpf; COMMENT (UR) CULT NOT INDICATED; CULTURE IF INDICATED CULT NOT INDICATED; RBC, URINE 0-3 /hpf (0-3); URINE COLOR YELLOW (YELLW/STRAW)
[2017-02-24 19:01] LABS: BETA HCG QUANT LESS THAN 1 MIU/ML (0-5)
[2017-02-24 19:27] VITALS: BP 125/81; PULSE 71; RESP 17; TEMP 98.1; O2SAT 95
[2017-02-24] MEDS ORDERED: HYDR-3533 PO (19:59)
--- NOTE | 2017-02-24 19:59 | PD ---
HPI Chief Complaint: Headache Time Seen by Provider: 17:29 Travel History International Travel<30 days: No Contact w/Intl Traveler<30days: No Traveled to known affect area: No History of Present Illness HPI 46-year-old female with history of transverse myelitis, recently admitted on 02/14 for a flareup, did well on IV steroids and discharged home with steroid taper, here for evaluation of return of symptoms consistent with a flareup of her transverse myelitis. The patient reports a posterior headache described as pressure and feels as though she had a lumbar puncture although she has not had one in several years. She also describes left arm paresthesias and urinary urgency. She denies dysuria. No fevers or chills. She feels as though her left arm may be a little bit weak. Chart review shows that the patient had a brain MRI on 12/14/16 that showed no acute hemorrhage, mass or infarction, there are multiple small scattered punctate areas of increasing signal which are nonspecific and may or percent chronic small vessel ischemic changes. She also had an MRI of her cervical spine that was read as suboptimal because of motion artifact, cervical cord intact with no abnormal enhancement or focal lesion identified, annular disc bulges at C5 and C6 and C6 and 7 with mass effect on the thecal sac, no mass effect on the cord. PFSH Past Medical History Hx Anticoagulant Therapy: No Arthritis: Yes (left knee) Autoimmune Disease: No Anxiety: Yes Depression: Yes Heart Rhythm Problems: No Cancer: No Cardiac Catheterization: Yes Cardiovascular Problems: Yes (heart attack) Chest Pain: No Congestive Heart Failure: No Cerebrovascular Accident: No Diabetes: No Diminished Hearing: No Endocrine: No Genitourinary: No Hypertension: Yes Immune Disorder: No Neurologic: Yes (Transverse myelitis, spinal cord lesion ) Psychiatric: Yes (Mood disorder ) Reproductive: No Respiratory: No Immunizations Current: Yes Migraines: Yes Myocardial Infarction: Yes Seizures: No ?: Not Menopausal: Yes Tubal Ligation: Yes Past Surgical History Abdominal Surgery: Yes (hysterectomy) Body Medical Devices: bladder sling Cardiac Surgery: No Ear Surgery: No Endocrine Surgery: No Eye Surgery: No Genitourinary Surgery: Yes (Bladder sling) Hysterectomy: Yes Oral Surgery: No Thoracic Surgery: No Social History Alcohol Use: No Tobacco Use: Yes (1 PPD) Substance Use: No Allergies-Medications (Allergen,Severity, Reaction): Coded Allergies: No Known Allergies (Unverified , 02/14/17) Reported Meds & Prescriptions Reported Meds & Active Scripts Active Lortab (Hydrocodone-Acetaminophen) 5-325 Mg Tab 1 Tab PO Q6H PRN [place] (Hydrocodone-Acetaminophen) 5-325 mg Tab 1 Tab PO Q6H PRN Medrol (Methylprednisolone) 8 Mg Tab 8 Mg PO DAILY take 8 mg bid x 3 days, then 8 mg daily x 3 days then 4 mg daily x 3 days Reported Potassium Chloride ER (Potassium Chloride) 20 Meq Tab 20 Meq PO DIRECTED Takes PRN for edema Lasix (Furosemide) 20 Mg Tab 20 Mg PO DIRECTED Takes PRN for edema Voltaren-Xr (Diclofenac Sodium) 100 Mg Tab.er.24h 1 Tab PO DAILY PRN Lyrica (Pregabalin) 200 Mg Cap 200 Mg PO TID Omeprazole 20 Mg Tab 40 Mg PO DAILY Lisinopril 10 Mg Tab 20 Mg PO BID Cardizem CD 24 HR (Diltiazem CD 24 HR) 240 Mg Caper 240 Mg PO DAILY Review of Systems Except as stated in HPI: all other systems reviewed are Neg Physical Exam Narrative GENERAL: Well-developed, well-nourished, comfortable, no apparent distress. SKIN: Focused skin assessment warm/dry. HEAD: Atraumatic. Normocephalic. EYES: Pupils equal and round. No scleral icterus. No injection or drainage. ENT: Mucous membranes pink and moist. NECK: Trachea midline. No JVD. CARDIOVASCULAR: Regular rate and rhythm. No murmur appreciated. RESPIRATORY: No accessory muscle use. Clear to auscultation. Breath sounds equal bilaterally. GASTROINTESTINAL: Abdomen soft, non-tender, nondistended. MUSCULOSKELETAL: No obvious deformities. No clubbing. No cyanosis. No edema. NEUROLOGICAL: Awake and alert. No obvious cranial nerve deficits. Motor grossly within normal limits. Normal speech. No focal deficits with normal muscle strength in all 4 extremities. PSYCHIATRIC: Appropriate mood and affect; insight and judgment normal. Data Data Last Documented VS Vital Signs Date Time Temp Pulse Resp B/P (MAP) Pulse Ox O2 Delivery O2 Flow Rate FiO2 02/24/17 19:27 98.1 71 17 125/81 (96) 95 Room Air Orders Orders Beta Hcg (Quant/Titer) (02/24/17 18:06) Complete Blood Count With Diff (02/24/17 18:06) Comprehensive Metabolic Panel (02/24/17 18:06) Prothrombin Time / Inr (Pt) (02/24/17 18:06) Act Partial Throm Time (Ptt) (02/24/17 18:06) Urinalysis - C+S If Indicated (02/24/17 18:06) Iv Access Insert/Monitor (02/24/17 18:06) Ecg Monitoring (02/24/17 18:06) Oximetry (02/24/17 18:) Sodium Chloride 0.9% Flush (Ns Flush) (02/24/17 18:15) Acetamin-Hydrocod 325-5 Mg ([place] 5-325 (02/24/17 18:15) Methylprednisolone So Succ Inj (Solumedr (02/24/17 18:15) Labs Laboratory Tests Test 02/24/17 18:00 02/24/17 18:30 Urine Color YELLOW Urine Turbidity CLOUDY Urine pH 6.5 Urine Specific [place] 1.015 Urine Protein NEG mg/dL Urine Glucose (UA) NEG mg/dL Urine Ketones NEG mg/dL Urine Occult Blood SMALL Urine Nitrite NEG Urine Bilirubin NEG Urine Leukocyte Esterase NEG Urine RBC 0-3 /hpf Urine WBC 3-5 /hpf Urine Squamous Epithelial Cells 6-8 /hpf Urine Bacteria FEW /hpf Microscopic Urinalysis Comment CULT NOT INDICATED White Blood Count 8.6 TH/MM3 Red Blood Count 3.74 MIL/MM3 Hemoglobin 12.1 GM/DL Hematocrit 36.4 % Mean Corpuscular Volume 97.3 FL Mean Corpuscular Hemoglobin 32.4 PG Mean Corpuscular Hemoglobin Concent 33.3 % Red Cell Distribution Width 13.8 % Platelet Count 233 TH/MM3 Mean Platelet Volume 9.2 FL Neutrophils (%) (Auto) 62.3 % Lymphocytes (%) (Auto) 26.2 % Monocytes (%) (Auto) 8.8 % Eosinophils (%) (Auto) 1.6 % Basophils (%) (Auto) 1.1 % Neutrophils # (Auto) 5.3 TH/MM3 Lymphocytes # (Auto) 2.3 TH/MM3 Monocytes # (Auto) 0.8 TH/MM3 Eosinophils # (Auto) 0.1 TH/MM3 Basophils # (Auto) 0.1 TH/MM3 CBC Comment DIFF FINAL Differential Comment Prothrombin Time 9.6 SEC Prothromb Time International Ratio 0.9 RATIO Activated Partial Thromboplast Time 25.0 SEC Blood Urea Nitrogen 20 MG/DL Creatinine 0.71 MG/DL Random Glucose 79 MG/DL Total Protein 6.8 GM/DL Albumin 3.6 GM/DL Calcium Level 8.5 MG/DL Alkaline Phosphatase 48 U/L Aspartate Amino Transf (AST/SGOT) 12 U/L Alanine Aminotransferase (ALT/SGPT) 23 U/L Total Bilirubin 0.4 MG/DL Sodium Level 137 MEQ/L Potassium Level 4.2 MEQ/L Chloride Level 103 MEQ/L Carbon Dioxide Level 28.6 MEQ/L Anion Gap 5 MEQ/L Estimat Glomerular Filtration Rate 88 ML/MIN Human Chorionic Gonadotropin, Quant LESS THAN 1 MIU/ML MDM Medical Decision Making Medical Screen Exam Complete: Yes Emergency Medical Condition: Yes Medical Record Reviewed: Yes Differential Diagnosis Transverse myelitis flareup, UTI, metabolic abnormality, spinal cord compression less likely. Narrative Course Vital signs reviewed and are within normal limits. The patient was evaluated by neurologist Dr. Troy during her last admission. I attempted to contact her, however I can only get in touch with the on-call neurologist Dr. Arias. He recommends giving the patient 250 mg of IV Solu- Medrol and have her follow-up with Dr. Troy in her office tomorrow. The patient is amenable to this plan. CBC is unremarkable. CMP is unremarkable. UA is not suggestive of UTI. Patient was given Lortab 5/325 and 250 mg of IV Solu-Medrol. She reports that her headache is completely resolved. She ambulated to the restroom without assistance, was slightly broad-based gait. There are no focal deficits on exam. Transabdominal ultrasound was performed and shows only a small amount of postvoid residual urine. Plan at this point is to have her continue her oral steroids at home and to follow-up with Dr. Troy in her office tomorrow. Patient informed on when to return to the emergency department. She verbalizes understanding and agreement with plan. Diagnosis Primary Impression: Transverse myelitis Additional Impression: Headache Qualified Codes: R51 - Headache Referrals: Lakesha Troy MD 1 day Neurologist Additional Instructions: Follow-up with neurologist Dr. Troy tomorrow. Return to the emergency department for worsening symptoms or any other concerns. Scripts Hydrocodone-Acetaminophen (Lortab) 5-325 Mg Tab 1 TAB PO Q6H Y for PAIN, #10 TAB 0 Refills Prov: Gregory Philip MD 02/24/17 Disposition: 01 DISCHARGE HOME Condition: Stable Gregory Philip MD Feb 24, 2017 19:59
[2017-02-24 20:05] VITALS: BP 117/72; PULSE 63; RESP 18; O2SAT 98
== END 2017-02-24 20:33 | disposition home or self-care (01) ==
LOC: PHED 15:22
DX: G37.3 Acute transverse myelitis in demyelinating disease of central nervous system (principal); R51 Headache; I10 Essential (primary) hypertension; I25.2 Old myocardial infarction
CPT/HCPCS: 80053; 81001; 84702; 85025; 85610; 85730; 96365; 99285; J2930

== ENCOUNTER 2017-02-25 19:59 | Inpatient (IN) | payer OTHER, MEDICARE ==
[~2017-02-25] VITALS: Ht 160 cm; Wt 110.2 kg
[~2017-02-25 19:59] MED LIST changes: +HYDR-3533 PO
[2017-02-25 20:09] VITALS: BP 132/61; PULSE 89; RESP 17; TEMP 97.8
--- NOTE | 2017-02-25 21:06 | PD ---
HPI Chief Complaint: Headache Time Seen by Provider: 20:24 Travel History International Travel<30 days: No Contact w/Intl Traveler<30days: No Traveled to known affect area: No History of Present Illness HPI This 46-year-old female is complaining of posterior occipital headache and paresthesias of the left arm equal in the right leg. She has a history of transverse myelitis which has flared up several times through the years. She was admitted for a flareup February 14 and was given high-dose steroids. She was in the hospital for several days. She went home and started having some mild recurrence of symptoms this if really paresthesias in the left arm and the right leg. The left arm has been weak since the episode. She has also had some urinary incontinence. She came back to the ER yesterday and saw Dr. Cheney. He spoke with neurology and gave her 250 mg of Solu-Medrol which she says helped her headache. She was then PFSH Past Medical History Hx Anticoagulant Therapy: No Arthritis: Yes (left knee) Autoimmune Disease: No Anxiety: Yes Depression: Yes Heart Rhythm Problems: No Cancer: No Cardiac Catheterization: Yes Cardiovascular Problems: Yes Chest Pain: No Congestive Heart Failure: No Cerebrovascular Accident: No Diabetes: No Diminished Hearing: No Endocrine: No Genitourinary: No Hypertension: Yes Immune Disorder: No Neurologic: Yes (Transverse myelitis, spinal cord lesion ) Psychiatric: Yes (Mood disorder ) Reproductive: No Respiratory: No Immunizations Current: Yes Migraines: Yes Myocardial Infarction: Yes Seizures: No Tetanus Vaccination: Unknown Influenza Vaccination: No ?: Not Menopausal: Yes Tubal Ligation: Yes Past Surgical History Abdominal Surgery: Yes (hysterectomy) Body Medical Devices: bladder sling Cardiac Surgery: No Ear Surgery: No Endocrine Surgery: No Eye Surgery: No Genitourinary Surgery: Yes (Bladder sling) Hysterectomy: Yes Oral Surgery: No Thoracic Surgery: No Other Surgery: Yes Social History Alcohol Use: No Tobacco Use: Yes (1 PPD) Substance Use: No Allergies-Medications (Allergen,Severity, Reaction): Coded Allergies: acetaminophen (Verified Allergy, Intermediate, Nausea/Vomiting, 02/25/17) oxycodone (Verified Allergy, Intermediate, Nausea/Vomiting, 02/25/17) Reported Meds & Prescriptions Reported Meds & Active Scripts Active Lortab (Hydrocodone-Acetaminophen) 5-325 Mg Tab 1 Tab PO Q6H PRN Medrol (Methylprednisolone) 8 Mg Tab 8 Mg PO DAILY take 8 mg bid x 3 days, then 8 mg daily x 3 days then 4 mg daily x 3 days Reported Potassium Chloride ER (Potassium Chloride) 20 Meq Tab 20 Meq PO DIRECTED Takes PRN for edema Lasix (Furosemide) 20 Mg Tab 20 Mg PO DIRECTED Takes PRN for edema Voltaren-Xr (Diclofenac Sodium) 100 Mg Tab.er.24h 1 Tab PO DAILY PRN Lyrica (Pregabalin) 200 Mg Cap 200 Mg PO TID Omeprazole 20 Mg Tab 40 Mg PO DAILY Lisinopril 10 Mg Tab 20 Mg PO BID Cardizem CD 24 HR (Diltiazem CD 24 HR) 240 Mg Caper 240 Mg PO DAILY Review of Systems General / Constitutional: No: Fever, Chills Eyes: No: Diploplia HENT: Positive: Headaches Cardiovascular: No: Chest Pain or Discomfort, Palpitations Respiratory: No: Cough, Shortness of Breath Gastrointestinal: No: Nausea, Vomiting Genitourinary: No: Urgency, Frequency Musculoskeletal: Positive: Myalgias Skin: No Rash Neurologic: Positive: Weakness, Incontinence, Sensory Disturbance Psychiatric: No: Anxiety Hematologic/Lymphatic: No: Easy Bruising Physical Exam Narrative GENERAL: Well-developed female SKIN: Focused skin assessment warm/dry. HEAD: Atraumatic. Normocephalic. EYES: Pupils equal and round. No scleral icterus. No injection or drainage. ENT: No nasal bleeding or discharge. Mucous membranes pink and moist. NECK: Trachea midline. No JVD. CARDIOVASCULAR: Regular rate and rhythm. No murmur appreciated. RESPIRATORY: No accessory muscle use. Clear to auscultation. Breath sounds equal bilaterally. GASTROINTESTINAL: Abdomen soft, non-tender, nondistended. Hepatic and splenic margins not palpable. MUSCULOSKELETAL: No obvious deformities. No clubbing. No cyanosis. No edema. NEUROLOGICAL: Awake and alert. No obvious cranial nerve deficits. Motor grossly within normal limits. Normal speech. Complains of some diminished sensation on the arms bilaterally PSYCHIATRIC: Appropriate mood and affect; insight and judgment normal. Data Data Last Documented VS Vital Signs Date Time Temp Pulse Resp B/P (MAP) Pulse Ox O2 Delivery O2 Flow Rate FiO2 02/25/17 20:25 Room Air 02/25/17 20:09 97.8 89 17 132/61 (84) Orders Orders Complete Blood Count With Diff (02/25/17 21:07) Basic Metabolic Panel (Bmp) (02/25/17 21:07) Urinalysis - C+S If Indicated (02/25/17 21:07) Pantoprazole (Protonix) (02/26/17 09:00) Methylprednisolone So Succ Inj (Solumedr (02/25/17 21:15) Admit Order (Ed Use Only) (02/25/17 21:22) MDM Medical Decision Making Medical Screen Exam Complete: Yes Emergency Medical Condition: Yes Medical Record Reviewed: Yes Differential Diagnosis Differential includes transverse myelitis, MS Narrative Course This lady has been diagnosed with transverse myelitis and has responded to Solu- Medrol. She has had a mild exacerbation manifested primarily by sensory deficits at this time. I have spoken with Dr. Lewis and he recommends that she gets 3 days of Solu-Medrol 250 mg IV every 6 Diagnosis Primary Impression: Transverse myelitis Admitting Information Admitting Physician Requests: Admit Babak Joy MD Feb 25, 2017 21:06
[2017-02-25] MEDS ORDERED: methylPREDNISolone SOD SUCC 125 MG/2 ML VIAL IV PUSH ONE (21:15)
[2017-02-25] MEDS ORDERED: methylPREDNISolone SOD SUCC 125 MG/2 ML VIAL IV PUSH SCH (21:30)
[2017-02-25] MEDS ORDERED: SODIUM CHLORIDE 0.9% FLUSH 10 ML FLUSH IV FLUSH PRN (21:30)
[2017-02-25] MEDS ORDERED: NALOXONE HCL 0.4 MG/ML AMP IV PUSH PRN (21:30)
[2017-02-25 21:31] VITALS: BP 149/85; PULSE 62; RESP 16; TEMP 98.1; O2SAT 95
[2017-02-25 21:40] LABS: AUTOMATED NEUTROPHIL # 11.4 TH/MM3 (1.8-7.7); BASOPHIL # 0.7 TH/MM3 (0-0.2); BASOPHIL % 4.6 % (0.0-2.0); HEMATOCRIT 35.2 % (35.0-46.0); HEMO FLAGS DIFF FINAL; LYMPH % 10.8 % (9.0-44.0); LYMPHOCYTE # 1.6 TH/MM3 (1.0-4.8); MEAN CORPUSCULAR HEMOGLOBIN 33.2 PG (27.0-34.0); MEAN CORPUSCULAR HGB CONC 34.9 % (32.0-36.0); MONO % 9.2 % (0.0-8.0); NEUT % 75.4 % (16.0-70.0); PLATELET COUNT 248 TH/MM3 (150-450); RED CELL DISTRIBUTION WIDTH 12.9 % (11.6-17.2); WHITE BLOOD COUNT 15.1 TH/MM3 (4.0-11.0)
[2017-02-25 21:41] VITALS: BP 105/59; PULSE 65; RESP 18; O2SAT 94
[2017-02-25 21:41] LABS: BLOOD, URINE SMALL (NEG); GLUCOSE,URINE NEG (NEG); KETONE, URINE NEG (NEG); NITRITE,URINE NEG (NEG)
[2017-02-25 21:45] LABS: URINE COLOR YELLOW (YELLW/STRAW)
[2017-02-25 21:47] LABS: BACTERIA, URINE FEW /hpf; COMMENT (UR) CULT NOT INDICATED; CULTURE IF INDICATED CULT NOT INDICATED; POTASSIUM 4.2 MEQ/L (3.5-5.1); RBC, URINE 0-3 /hpf (0-3); SQUAMOUS EPITHELIAL CELL URINE > 8 /hpf (0-5)
[2017-02-25 21:50] LABS: BICARBONATE 24.9 MEQ/L (21.0-32.0)
[2017-02-25] MEDS: LORazepam 2 MG/ML VIAL IV PUSH PRN (23:48)
[2017-02-26] VITALS: BP 149/85; PULSE 62; RESP 16; TEMP 98.1; O2SAT 95
[2017-02-26] MEDS: methylPREDNISolone SOD SUCC 125 MG/2 ML VIAL IV PUSH SCH ×4 (02:47→20:53)
[2017-02-26] MEDS: ACETAMINOPHEN/HYDROcodone 325 MG/5 MG TAB PO PRN ×4 (03:18→18:49)
[2017-02-26 04:00] VITALS: BP 103/59; PULSE 71; RESP 16; TEMP 98.2; O2SAT 95
[2017-02-26 06:51] LABS: AUTOMATED NEUTROPHIL # 9.3 TH/MM3 (1.8-7.7); BASOPHIL % 0.1 % (0.0-2.0); EOSINOPHIL % 0.1 % (0.0-4.0); HEMATOCRIT 35.1 % (35.0-46.0); HEMO FLAGS DIFF FINAL; LYMPH % 6.8 % (9.0-44.0); LYMPHOCYTE # 0.7 TH/MM3 (1.0-4.8); MEAN CELL VOLUME 96.7 FL (80.0-100.0); MEAN CORPUSCULAR HEMOGLOBIN 32.4 PG (27.0-34.0); MEAN CORPUSCULAR HGB CONC 33.5 % (32.0-36.0); MONO % 0.9 % (0.0-8.0); NEUT % 92.1 % (16.0-70.0); PLATELET COUNT 214 TH/MM3 (150-450); RED BLOOD COUNT 3.63 MIL/MM3 (4.00-5.30); RED CELL DISTRIBUTION WIDTH 13.2 % (11.6-17.2); WHITE BLOOD COUNT 10.1 TH/MM3 (4.0-11.0)
[2017-02-26 07:00] LABS: POTASSIUM 4.2 MEQ/L (3.5-5.1)
[2017-02-26 07:06] LABS: BICARBONATE 25.1 MEQ/L (21.0-32.0)
[2017-02-26 08:00] VITALS: BP 141/75; PULSE 67; RESP 20; TEMP 97.8; O2SAT 95
[2017-02-26] MEDS: PANTOPRAZOLE SOD 40 MG DELAYED RELEASE TAB PO SCH (08:35)
[2017-02-26] MEDS ORDERED: PANTOPRAZOLE SOD 40 MG DELAYED RELEASE TAB PO SCH (09:00)
[2017-02-26] MEDS: SODIUM CHLORIDE 0.9% FLUSH 10 ML FLUSH IV FLUSH SCH ×2 (09:00→20:57)
[2017-02-26 12:00] VITALS: BP 140/74; PULSE 69; RESP 20; TEMP 97.9; O2SAT 96
[2017-02-26] MEDS: LORazepam 2 MG/ML VIAL IV PUSH PRN ×2 (13:21→20:53)
--- NOTE | 2017-02-26 13:47 | HHI.HP ---
[facility] Non-Staff Admission Diagnosis TRANSVERSE MYELITIS Diagnoses: (1) Cephalgia Diagnosis: Principal (2) Paresthesia Diagnosis: Principal (3) Transverse myelitis Diagnosis: Secondary Chief Complaint: Headache, paresthesia Travel History International Travel<30 Days: No Contact w/Intl Traveler <30 Da: No Traveled to Known Affected Are: No History of Present Illness Written by Abraham Mtz, acting as scribe for Dr. Byers on 02/26/17 at 13:31. This is a 46-year-old female with known history of hypertension, chronic smoker,-year-old bowel syndrome, history transverse myelitis who re- presented to the hospital again because of neurological symptoms to include headache, bladder pressure, left leg heaviness, weakness. Patient was just recently admitted to the hospital on February 14 and was discharged on February 16, 2017 after receiving 1 g IV Solu-Medrol for 3 days. Patient discharge she was feeling a little bit better from when she was admitted previously. She did not obtain outpatient follow-up after her discharge as of yet. She returned to the emergency department again the day before yesterday because of left leg heaviness and weakness. Patient states that she had a lifted up higher in order to get out of the bathtub and shower. She had a headache which she thought might be a spinal headache so she came to the hospital. Patient was evaluated by Dr. Philip and he contacted neurology who recommended giving Solu-Medrol IV 250 mg and he notified the patient to follow- up with the neurologist the next day. Patient states that she called at 8:158: 30 in the morning And did not hear anything back from them so she called him back and to 20 the afternoon to be seen, however she was told that she was unable to be seen because there are no appointments and Dr. Troy had already gone for the day. The patient called back to the hospital and spoke with the ER charge nurse and classification case manager. Because they could not notify the patient, steroids she is to take they recommended her to come back to get reevaluated in the emergency department. Patient was reevaluated by the ER physician and they spoke to the neurologist on-call who indicated patient should be admitted to the hospital for IV Solu-Medrol. Patient has not had a formal workup in over 10 years for the transverse myelitis. She has documentation that she was told to carry around with her at all time to notify a any physician that she has transverse myelitis of the cervical spine., However MRI of the cervical spine was done on her last visit and there was no cord abnormality, abnormal enhancement or focal lesions were identified. This was discussed with the patient and extensively today. Notified them that we'll be doing a full neurological workup to evaluate for her symptoms and etiology. She may need different treatment than IV Solu-Medrol to include but not limited to plasmapheresis Review of Systems Neurologic: COMPLAINS OF: Headache, Paresthesias Except as stated in HPI: all other systems reviewed are Neg Past Family Social History Past Medical History Hypertension History of transverse myelitis Chronic smoker, irritable bowel syndrome History of myocardial infarction Past Surgical History Cardiac catheterization with normal findings Bladder sling Tubal ligation Hysterectomy Reported Medications Reported Meds & Active Scripts Active Lortab (Hydrocodone-Acetaminophen) 5-325 Mg Tab 1 Tab PO Q6H PRN Medrol (Methylprednisolone) 8 Mg Tab 8 Mg PO DAILY take 8 mg bid x 3 days, then 8 mg daily x 3 days then 4 mg daily x 3 days Reported Potassium Chloride ER (Potassium Chloride) 20 Meq Tab 20 Meq PO DIRECTED Takes PRN for edema Lasix (Furosemide) 20 Mg Tab 20 Mg PO DIRECTED Takes PRN for edema Voltaren-Xr (Diclofenac Sodium) 100 Mg Tab.er.24h 1 Tab PO DAILY PRN Lyrica (Pregabalin) 200 Mg Cap 200 Mg PO TID Omeprazole 20 Mg Tab 40 Mg PO DAILY Lisinopril 10 Mg Tab 20 Mg PO BID Cardizem CD 24 HR (Diltiazem CD 24 HR) 240 Mg Caper 240 Mg PO DAILY Allergies: Coded Allergies: acetaminophen (Verified Allergy, Intermediate, Nausea/Vomiting, 02/25/17) oxycodone (Verified Allergy, Intermediate, Nausea/Vomiting, 02/25/17) Family History Father alive is 70 years old with history of prostate cancer, mother alive at age 68 with lupus, diabetes, thyroid Social History Patient continues to smoke one pack a cigarettes a day since she was 15 years old. She denies any alcohol or illicit drugs Physical Exam Vital Signs Vital Signs Date Time Temp Pulse Resp B/P (MAP) Pulse Ox O2 Delivery O2 Flow Rate FiO2 02/26/17 12:00 97.9 69 20 140/74 (96) 96 02/26/17 08:00 97.8 67 20 141/75 (97) 95 02/26/17 04:00 98.2 71 16 103/59 (74) 95 02/26/17 00:00 98.1 62 16 149/85 (106) 95 02/25/17 22:26 70 18 94 02/25/17 21:41 65 18 105/59 (74) 94 Room Air 02/25/17 21:31 98.1 62 16 149/85 (106) 95 02/25/17 20:25 Room Air 02/25/17 20:09 97.8 89 17 132/61 (84) Physical Exam GENERAL: Well-developed, well-nourished, in no acute distress. alert and orientated HEENT: Head is normocephalic without any lesions or masses noted. Facial features are symmetric. Eyes: Pupils equal round reactive to light. Extraocular muscles are intact. Conjunctivae were clear. Oropharyngeal: Pharynx without any erythema edema. Tongue is midline without deviation. Buccal mucosa is moist without any masses or lesions NECK: Supple without any masses. Trachea midline no deviation. No JVD, no bruits are appreciated CARDIAC: Regular rhythm, regular rate. S1/S2 are heard. No murmurs gallops or rubs. LUNGS: Clear to auscultation bilaterally. No wheeze, rhonchi or rales. No use of accessory muscles on inspiration or expiration. ABDOMEN: Soft, nontender. Nondistended. Bowel sounds heard in all 4 quadrants. No organomegaly or masses. Negative rebound, negative guarding EXTREMITIES: No edema, pulses are equal bilaterally. No cyanosis or clubbing NEUROLOGY: Mood and affect appear appropriate. Cranial nerves II through XII grossly intact. Muscle strength 5/5 in upper and lower extremities bilaterally. Deep tendon reflexes are 2+ in upper and lower extremities bilaterally. Laboratory Laboratory Tests Test 02/25/17 21:29 02/26/17 06:20 02/26/17 09:53 White Blood Count 15.1 10.1 Red Blood Count 3.70 3.63 Hemoglobin 12.3 11.8 Hematocrit 35.2 35.1 Mean Corpuscular Volume 95.0 96.7 Mean Corpuscular Hemoglobin 33.2 32.4 Mean Corpuscular Hemoglobin Concent 34.9 33.5 Red Cell Distribution Width 12.9 13.2 Platelet Count 248 214 Mean Platelet Volume 8.9 9.3 Neutrophils (%) (Auto) 75.4 92.1 Lymphocytes (%) (Auto) 10.8 6.8 Monocytes (%) (Auto) 9.2 0.9 Eosinophils (%) (Auto) 0.0 0.1 Basophils (%) (Auto) 4.6 0.1 Neutrophils # (Auto) 11.4 9.3 Lymphocytes # (Auto) 1.6 0.7 Monocytes # (Auto) 1.4 0.1 Eosinophils # (Auto) 0.0 0.0 Basophils # (Auto) 0.7 0.0 CBC Comment DIFF FINAL DIFF FINAL Differential Comment Urine Color YELLOW Urine Turbidity CLEAR Urine pH 6.0 Urine Specific [place] 1.033 Urine Protein NEG Urine Glucose (UA) NEG Urine Ketones NEG Urine Occult Blood SMALL Urine Nitrite NEG Urine Bilirubin NEG Urine Leukocyte Esterase NEG Urine RBC 0-3 Urine WBC 3-5 Urine Squamous Epithelial Cells > 8 Urine Bacteria FEW Microscopic Urinalysis Comment CULT NOT INDICATED Blood Urea Nitrogen 28 25 Creatinine 1.10 0.72 Random Glucose 109 134 Calcium Level 8.5 8.4 Sodium Level 138 138 Potassium Level 4.2 4.2 Chloride Level 104 105 Carbon Dioxide Level 24.9 25.1 Anion Gap 9 8 Estimat Glomerular Filtration Rate 53 86 Result Diagram: 02/26/1761902/26/17619 Caprini VTE Risk Assessment Caprini VTE Risk Assessment: No/Low Risk (score <= 1) Caprini Risk Assessment Model Point Value = 1 Point Value = 2 Point Value = 3 Point Value = 5 Age 41-60 Minor surgery BMI > 25 kg/m2 Swollen legs Varicose veins or History of unexplained or recurrent spontaneous Oral contraceptives or hormone replacement Sepsis (< 1 month) Serious lung disease, including pneumonia (< 1 month) Abnormal pulmonary function Acute myocardial infarction Congestive heart failure (< 1 month) History of inflammatory bowel disease Medical patient at bed rest Age 61-74 Arthroscopic surgery Major open surgery (> 45 min) Laparoscopic surgery (> 45 min) Malignancy Confined to bed (> 72 hours) Immobilizing plaster cast Central venous access Age >= 75 History of VTE Family history of VTE Factor V Leiden Prothrombin [id number] Lupus anticoagulant Anticardiolipin antibodies Elevated serum homocysteine Heparin-induced thrombocytopenia Other congenital or acquired thrombophilia Stroke (< 1 month) Elective arthroplasty Hip, pelvis, or leg fracture Acute spinal cord injury (< 1 month) Prophylaxis Regimen Total Risk Factor Score Risk Level Prophylaxis Regimen 0-1 Low Early ambulation 2 Moderate Order ONE of the following: *Sequential Compression Device (SCD) *Heparin 5000 units SQ BID 3-4 Higher Order ONE of the following medications: *Heparin 5000 units SQ TID *Enoxaparin/Lovenox 40 mg SQ daily (WT < 150 kg, CrCl > 30 mL/min) *Enoxaparin/Lovenox 30 mg SQ daily (WT < 150 kg, CrCl > 10-29 mL/min) *Enoxaparin/Lovenox 30 mg SQ BID (WT < 150 kg, CrCl > 30 mL/min) AND/OR *Sequential Compression Device (SCD) 5 or more Highest Order ONE of the following medications: *Heparin 5000 units SQ TID (Preferred with Epidurals) *Enoxaparin/Lovenox 40 mg SQ daily (WT < 150 kg, CrCl > 30 mL/min) *Enoxaparin/Lovenox 30 mg SQ daily (WT < 150 kg, CrCl > 10-29 mL/min) *Enoxaparin/Lovenox 30 mg SQ BID (WT < 150 kg, CrCl > 30 mL/min) AND *Sequential Compression Device (SCD) Assessment and Plan Assessment and Plan Paresthesia, cephalgia with history of transverse myelitis Patient with recent hospitalization with completed treatment of IV Solu- Medrol with recurrent symptoms Would recommend full neurological evaluation at this time since patient did possibly fail treatment with Solu-Medrol. After discussion with neurology was also recommended full evaluation. Obtain MRI study of thoracic, lumbar, sacral spine. Previous MRI of the brain did not indicate any acute abnormality, MRI of the cervical spine did not indicate any cord lesions. Further laboratory study to include SSA/SSB antibodies, vitamin B12, methylmalonic acid, RPR, LAVON, NMO-IgG antibodies, [id number] IgG Patient is continued on IV Solu-Medrol at this time, however if resistance and further testing proves otherwise patient may need plasmapheresis Awaiting full recommendations from neurologist. Patient may need lumbar puncture performed Hypertension Continue home medications DVT prevention Low risk, early ambulation This note was transcribed by mlaly Mtz,. I, Dr. Willie Alex personally performed the history, physical exam, and medical decision making; and confirmed the accuracy of the information in the transcribed note. Authenticated by Dr. Willie Alex on 02/26/17 at 13:45. Discussed Condition With Patient, patient's , nursing staff, neurologist Physician Certification 2 Midnight Certification Type: Admission for Inpatient Services Order for Inpatient Services The services are ordered in accordance with Medicare regulations or non- Medicare payer requirements, as applicable. In the case of services not specified as inpatient-only, they are appropriately provided as inpatient services in accordance with the 2-midnight benchmark. Estimated LOS (days): 2 days is the estimated time the patient will need to remain in the hospital, assuming treatment plan goals are met and no additional complications. Post-Hospital Plan: Not yet determined Abraham Mtz Feb 26, 2017 13:47 Willie Zelaya MD Feb 26, 2017 18:22
--- NOTE | 2017-02-26 14:23 | MB ---
cc: [facility] M.D. DATE OF CONSULTATION: 02/26/2017 HISTORY OF PRESENT ILLNESS The patient is seen in neurological consultation today. She is a 46-year-old woman with a diagnosis of transverse myelitis 10 years ago, apparently involving the cervical spinal cord. She was treated with steroids. She did well and as far as I could father she had no recurrence of symptoms until 10 or 11 days ago when she came to the hospital and was admitted with some sensory and motor but predominantly sensory symptoms involving all four extremities. She was treated with Solu-Medrol one gram daily for three days and improved and went home, but three days later she had recurrence of symptoms. She went home on a Medrol Dosepak. She actually came to the emergency room a couple of days ago when I was diet consultant and we gave her a boost of steroid with a single dose of Solu-Medrol IV 250 mg. She went home and felt better but yesterday her symptoms seemed to flare again and she returned. She is describing some paresthesias mostly left more than right arm, some weakness, some worsening of bladder function and some weakness in the lower extremities though she has been ambulatory. Her symptoms have already improved today after she started back on IV Solu-Medrol last evening. The patient is scheduled for an MRI of the lumbar and thoracic spine. In the recent admission 10 days ago she had an MRI brain and cervical spine and results were reviewed. NEUROLOGICAL EXAMINATION The neurological exam shows the patient to be alert, oriented, mildly anxious and actually wanting to go home. Ocular movements and visual pham full. Pupils equal and reactive. No facial weakness. Speech normal. She is moderately overweight. She has reflexes 1+ at the elbows and knees, trace at the ankles and plantar responses were flexor bilaterally. She was able to walk with slight limping in the left lower extremity but she also has osteoarthritic joint disease involving the knees. Position sense is normal in the lower extremities. There is no sensory level. 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 LABORATORY DATA Current labs reviewed. WBC 10.1, hemoglobin 11.8, platelets 214. Basic chemistry normal with a BUN 25 today and yesterday was 28. Creatinine is 0.7 today and yesterday was 1.1. Random glucose is 134. B12 level low at 179. ASSESSMENT AND RECOMMENDATIONS Presumed flare-up of transverse myelitis. She says that 10 years ago she had a spinal tap and there was only a single spot in her evaluation, therefore diagnosis of MS was never made. She has been having recurrence of symptoms. The recent MRI brain was more suggestive of microvascular disease than a primary demyelinating disorder. She is going to have an MRI of the thoracic and lumbar spine today. I agree with continuing with Solu-Medrol 250 mg IV every 6 hours for a total of 12 doses. She already has a follow-up appointment in the office with Dr. Troy. Depending on how she progresses, consider lumbar puncture. Her B12 level is low and she would benefit from B12 parenteral replacement. Methylmalonic acid is pending. I will follow the neurological course if needed while she is in the hospital. Thank you for asking us to assist in her care. MD CINDY Bingham/FLORY /1:50 PM /2:08 PM
[2017-02-26] MEDS ORDERED: GADODIAMIDE PF 287 MG/ML 20 ML VIAL (for RAD MRI) IVCONTRAST ONE (14:58)
[2017-02-26] MEDS ORDERED: CYANOCOBALAMIN 1000 MCG/ML VIAL IM SCH (15:00)
--- NOTE | 2017-02-26 15:15 | RADRPT ---
EXAM DATE/TIME: 02/26/2017 13:45 [facility] COMPARISON: No previous studies available for comparison. INDICATIONS : Transverse myelitis, bilateral arm and leg numbness and headache. CONTRAST: 20 cc Omniscan (gadodiamide) IV MEDICAL HISTORY : Hypertension. Myocardial infarction. SURGICAL HISTORY : Hysterectomy. Bladder sling. ENCOUNTER: Subsequent ACUITY: 3 weeks PAIN SCORE: 10/10 LOCATION: Head. TECHNIQUE: Multiplanar multisequence MRI of the thoracic spine was performed. FINDINGS: VERTEBRA: Normal vertebral body height. Homogeneous marrow signal. ALIGNMENT: Normal. CORD: Normal position and configuration. POST CONTRAST: No abnormal areas of contrast enhancement seen. T1-T2: Normal. T2-T3: The thecal sac has a normal diameter. No evidence of disc bulge or protrusion. T3-T4: The thecal sac has a normal diameter. No evidence of disc bulge or protrusion. T4-T5: The thecal sac has a normal diameter. No evidence of disc bulge or protrusion. T5-T6: The thecal sac has a normal diameter. There is a very tiny central disc bulge at this level resulting in no spinal stenosis or cord impingement. T6-T7: The thecal sac has a normal diameter. No evidence of disc bulge or protrusion. T7-T8: The thecal sac has a normal diameter. No evidence of disc bulge or protrusion. T8-T9: The thecal sac has a normal diameter. No evidence of disc bulge or protrusion. T9-T10: The thecal sac has a normal diameter. No evidence of disc bulge or protrusion. T10-T11: The thecal sac has a normal diameter. No evidence of disc bulge or protrusion. T11-T12: The thecal sac has a normal diameter. No evidence of disc bulge or protrusion. T12-L1: The thecal sac has a normal diameter. Minimal diffuse disc bulge is noted resulting in no spinal sten osis or nerve root impingement. Loss of disc height and signal is noted consistent with degenerative disc disease. CONCLUSION: 1. No evidence of thoracic cord abnormality. 2. Tiny central disc bulge at T5-6. 3. Minimal diffuse disc bulge at T12-L1. 4. Mild degenerative disc disease at T12-L1. 5. No spinal stenosis, cord compression or nerve root impingement. Larry Maldonado MD on February 26, 2017 at 15:06 Board Certified Radiologist. This report was verified electronically.
--- NOTE | 2017-02-26 15:31 | RADRPT ---
EXAM DATE/TIME: 02/26/2017 13:45 [facility] COMPARISON: No previous studies available for comparison. INDICATIONS : Transverse myelitis, bilateral arm and leg numbness and headache. CONTRAST: 20 cc Omniscan (gadodiamide) IV MEDICAL HISTORY : Hypertension. Myocardial infarction. SURGICAL HISTORY : Hysterectomy. Bladder sling. ENCOUNTER: Subsequent ACUITY: 3 weeks PAIN SCORE: 10/10 LOCATION: Head. TECHNIQUE: Multiplanar multisequence MRI of the lumbar spine was performed with and without contrast. FINDINGS: The most caudal appearing lumbar vertebra is numbered as L5. VERTEBRAE: Homogeneous signal. Normal alignment. Moderate intervertebral disc space narrowing at the L4-5 and L 5-S1 level. CONUS: Normal level and configuration. POST CONTRAST: No abnormal areas of contrast enhancement are seen. T12-L1: The thecal sac has a normal diameter. No evidence of disc bulge or protrusion. The neural foramina are patent bilaterally. L1-L2: The thecal sac has a normal diameter. No evidence of disc bulge or protrusion. The neural foramina are patent bilaterally. L2-L3: The thecal sac has a normal diameter. No evidence of disc bulge or protrusion. The neural foramina are patent bilaterally. L3-L4: The thecal sac has a normal diameter. No evidence of disc bulge or protrusion. The neural foramina are patent bilaterally. L4-L5: The thecal sac has a normal diameter. There is an asymmetric disc bulge right greater than left which narrows the right neural foramen and abuts right L4. No evidence of disc protrusion. L5-S1: The thecal sac has a normal diameter. Broad-based lateral diffuse annular bulge slightly narrows bot h of the neural foramen. No evidence of disc protrusion. CONCLUSION: Degenerative disc disease at the L4-5 and L5-S1 levels. No significant thecal sac stenosis or abnorma l areas of enhancement identified. No evidence of transverse myelitis on this exam. Prabhjot Birmingham MD on February 26, 2017 at 15:26 Board Certified Radiologist. This report was verified electronically.
--- NOTE | 2017-02-26 15:40 | RADRPT ---
EXAM DATE/TIME: 02/26/2017 13:45 [facility] COMPARISON: No previous studies available for comparison. INDICATIONS : Transverse myelitis, bilateral arm and leg numbness and headache. CONTRAST: 20 cc Omniscan (gadodiamide) IV MEDICAL HISTORY : Hypertension. Myocardial infarction. SURGICAL HISTORY : Hysterectomy. Bladder sling. ENCOUNTER: Subsequent ACUITY: 2 weeks PAIN SCORE: 10/10 LOCATION: head. TECHNIQUE: Multiplanar multisequence MRI examination of the sacrum/coccyx was performed. FINDINGS: BONE/CARTILAGE: Bone marrow signal is homogeneous. Articular cartilage signal is within normal limits. MUSCLES/TENDONS: All of the visualized muscles and tendons are intact. MISCELLANEOUS: Neurovascular structures are within normal limits. CONCLUSION: Normal examination. No abnormal areas of bone edema or enhancement are noted. Prabhjot Birmingham MD on February 26, 2017 at 15:39 Board Certified Radiologist. This report was verified electronically.
[2017-02-26 16:00] VITALS: BP 140/73; PULSE 69; RESP 20; TEMP 97.8; O2SAT 96
[2017-02-26] MEDS ORDERED: SUMAtriptan INJ 6 MG/0.5 ML VIAL SQ PRN (18:15)
[2017-02-26 20:00] VITALS: BP 118/75; PULSE 83; RESP 18; TEMP 96.6; O2SAT 95
[2017-02-26] MEDS ORDERED: PREGABALIN 100 MG CAP PO ONE (21:45)
[2017-02-27] VITALS: BP 118/73; PULSE 59; RESP 18; TEMP 98; O2SAT 94
[2017-02-27] MEDS: ACETAMINOPHEN/HYDROcodone 325 MG/5 MG TAB PO PRN ×2 (03:40→09:56)
[2017-02-27] MEDS: methylPREDNISolone SOD SUCC 125 MG/2 ML VIAL IV PUSH SCH ×4 (03:40→21:17)
[2017-02-27 08:00] VITALS: BP 123/72; PULSE 78; RESP 20; TEMP 96.6; O2SAT 95
[2017-02-27] MEDS: PREGABALIN 100 MG CAP PO SCH ×3 (08:13→17:57)
[2017-02-27] MEDS: PANTOPRAZOLE SOD 40 MG DELAYED RELEASE TAB PO SCH (08:13)
[2017-02-27] MEDS: SODIUM CHLORIDE 0.9% FLUSH 10 ML FLUSH IV FLUSH SCH ×2 (08:17→21:17)
[2017-02-27] MEDS: LORazepam 2 MG/ML VIAL IV PUSH PRN (08:26)
[2017-02-27 12:00] VITALS: BP 132/73; PULSE 76; RESP 20; TEMP 96.5; O2SAT 94
--- NOTE | 2017-02-27 12:59 | HHI.PR ---
Subjective Remarks Patient still c/o of headache and some photophobia. States the nausea is better. denies fevers or chills still c/o neck pain and some pain going into her left arm along with paresthesias Objective Vitals Vital Signs Date Time Temp Pulse Resp B/P (MAP) Pulse Ox O2 Delivery O2 Flow Rate FiO2 02/27/17 12:00 96.5 76 20 132/73 (92) 94 02/27/17 08:30 Room Air 02/27/17 08:00 96.6 78 20 123/72 (89) 95 02/27/17 04:00 Room Air 02/27/17 00:00 Room Air 02/27/17 00:00 98.0 59 18 118/73 (88) 94 02/26/17 20:00 96.6 83 18 118/75 (89) 95 02/26/17 20:00 Room Air 02/26/17 16:00 97.8 69 20 140/73 (95) 96 I/O 02/26/17 02/26/17 02/26/17 02/27/17 02/27/17 02/27/17 07:00 15:00 23:00 07:00 15:00 23:00 Intake Total 100 ml 640 ml Balance 100 ml 640 ml Intake Oral 100 ml 640 ml # Voids 2 # Bowel Movements 0 Result Diagram: 02/26/1761902/26/17 0620 Imaging Last Impressions Thoracic Spine MRI 02/26/17 0000 Signed Impressions: Service Date/Time: February 13:45 - CONCLUSION: 1. No evidence of thoracic cord abnormality. 2. Tiny central disc bulge at T5-6. 3. Minimal diffuse disc bulge at T12-L1. 4. Mild degenerative disc disease at T12-L1. 5. No spinal stenosis, cord compression or nerve root impingement. Larry Maldonado MD Sacrum/Coccyx MRI 02/26/17 0000 Signed Impressions: Service Date/Time: February 13:45 - CONCLUSION: Normal examination. No abnormal areas of bone edema or enhancement are noted. Prabhjot Birmingham MD Lumbar Spine MRI 02/26/17 0000 Signed Impressions: Service Date/Time: February 13:45 - CONCLUSION: Degenerative disc disease at the L4-5 and L5-S1 levels. No significant thecal sac stenosis or abnormal areas of enhancement identified. No evidence of transverse myelitis on this exam. Prabhjot Birmingham MD Objective Remarks GENERAL: Well-developed, well-nourished, in no acute distress. alert and orientated HEENT: Head is normocephalic without any lesions or masses noted. Facial features are symmetric. Eyes: Pupils equal round reactive to light. Extraocular muscles are intact. Conjunctivae were clear. Oropharyngeal: Pharynx without any erythema edema. Tongue is midline without deviation. Buccal mucosa is moist without any masses or lesions NECK: Supple without any masses. Trachea midline no deviation. No JVD, no bruits are appreciated. There is some tenderness over the cervical spine. CARDIAC: Regular rhythm, regular rate. S1/S2 are heard. No murmurs gallops or rubs. LUNGS: Clear to auscultation bilaterally. No wheeze, rhonchi or rales. No use of accessory muscles on inspiration or expiration. ABDOMEN: Soft, nontender. Nondistended. Bowel sounds heard in all 4 quadrants. No organomegaly or masses. Negative rebound, negative guarding EXTREMITIES: No edema, pulses are equal bilaterally. No cyanosis or clubbing NEUROLOGY: Mood and affect appear appropriate. Cranial nerves II through XII grossly intact. Muscle strength 5/5 in upper and lower extremities bilaterally. Deep tendon reflexes are 2+ in upper and lower extremities bilaterally. Medications and IVs Current Medications Medications (Trade) Dose Ordered Sig/Berry Route Start Time Stop Time Status Last Admin (NS Flush) 2 ml UNSCH PRN IV FLUSH 02/25/17 21:30 02/25/17 23:48 (NS Flush) 2 ml BID IV FLUSH 02/26/17 09:00 02/27/17 08:17 (Narcan Inj) 0.4 mg UNSCH PRN IV PUSH 02/25/17 21:30 (Protonix) 40 mg DAILY PO 02/26/17 09:00 02/27/17 08:13 (SoluMEDROL INJ) 250 mg Q6H IV PUSH 02/26/17 03:00 02/28/17 02:59 02/27/17 08:17 (Ativan Inj) 0.5 mg Q4H PRN IV PUSH 02/25/17 23:45 02/27/17 08:26 ([place] 5-325 Mg) 1 tab Q6H PRN PO 02/26/17 03:15 02/27/17 09:56 (Vitamin B12 Inj) 1,000 mcg Q3D IM 02/26/17 15:00 02/26/17 15:34 (Imitrex Inj) 6 mg UNSCH PRN SQ 02/26/17 18:15 02/26/17 22:37 (Lyrica) 200 mg TID PO 02/27/17 09:00 02/27/17 08:13 A/P Problem List: (1) Cephalgia ICD Code: R51 - Headache (2) Paresthesia ICD Code: R20.2 - Paresthesia of skin (3) Transverse myelitis ICD Code: G37.3 - Acute transverse myelitis in demyelinating disease of central nervous system Status: Acute Assessment and Plan 1. Paresthesia, cephalgia with history of transverse myelitis Patient with recent hospitalization with completed treatment of IV Solu- Medrol with recurrent symptoms Neurology consulted and following. MRI of the brain on 02/14 did not show any acute hemorrhage, mass or infarction. It showed multiple small scattered punctate areas of increased signal which are reported as nonspecific and possible small vessel ischemic change. Demyelination is unlikely. 02/27 appreciate neurology recommendations. MRI of the thoracic, lumbar and sacral spine did not show any evidence of thoracic cord abnormality for the exception of some degenerative takes disease as described above. There is also no reported evidence of transverse myelitis on this exam. B12 level is low at 179. Continue vitamin B12 injections 1000 g every 3 days intramuscular. Continue IV Solu-Medrol for now. We'll order a cervical spine MRI since last study was suboptimal due to motion artifact. For pain control I will start the patient on morphine immediate release. 3. Hypertension The blood pressure seems to be stable without BP meds. I will restart the patient on her home lisinopril 10 minutes by mouth daily. Patient is also on Cardizem which I will hold since blood pressures by well controlled. 2. Headache/photophobia No fevers or nuchal rigidity on exam. A trial of sumatriptan was given yesterday due to suspected possible complicated migraine headache, however the patient did not get any relief from the sumatriptan subcutaneous injections. I will start the patient on oral morphine immediate release for pain control. DVT prevention Low risk, early ambulation Byers Carrasquillo,Willie MD Feb 27, 2017 12:59
[2017-02-27] MEDS: MORPHINE SULFATE 15 MG TAB PO PRN ×3 (14:01→21:19)
[2017-02-27 14:49] LABS: ANA SCREEN NEG (NEG)
--- NOTE | 2017-02-27 15:59 | RADRPT ---
EXAM DATE/TIME: 02/27/2017 15:01 [facility] COMPARISON: MRI SACRUM/COCCYX W & W/O CONTRAST, February 26, 2017, 13:45. INDICATIONS : Radiculopathy. Transverse myelitis, bilateral arm and leg numbness and headache. MEDICAL HISTORY : Hypertension. Myocardial infarction. SURGICAL HISTORY : Hysterectomy. Bladder sling. ENCOUNTER: Subsequent ACUITY: 3 day PAIN SCORE: 7/10 LOCATION: cranial TECHNIQUE: Multiplanar, multisequence MRI examination of the cervical spine was performed. FINDINGS: VERTEBRAE: Normal vertebral body height. Homogeneous marrow signal. ALIGNMENT: No evidence of subluxation. CORD: Normal configuration and signal. POST FOSSA: The cerebellar tonsils are normal in position. C2-C3: The thecal sac has a normal configuration. There is no evidence of disc herniation or spinal canal s tenosis. The neural foramina are patent bilaterally. C3-C4: The thecal space and neural foramina are adequate. Facet joints are intact. C4-C5: The thecal sac has a normal configuration. There is no evidence of disc herniation or spinal canal s tenosis. The neural foramina are patent bilaterally. C5-C6: There is a small broad-based disc bulge which effaces the ventral thecal sac. There is mild encroachm ent of disc bulge and osteophytic spur on the lateral recess and foraminal on the left. The foramina on the right is adequate. C6-C7: There is a small broad-based disc bulge and osteophytic ridging eccentric to the right. There is encr oachment of osteophytic spur on the lateral recess on the right. The foramina are adequate. C7-T1: The thecal sac has a normal configuration. There is no evidence of disc herniation or spinal canal s tenosis. The neural foramina are patent bilaterally. CONCLUSION: 1. No abnormal signal within the cervical cord to suggest a transverse myelitis identified. 2. Mild degenerative changes as above. Randall Evans MD on February 27, 2017 at 15:29 Board Certified Radiologist. This report was verified electronically.
[2017-02-27 16:00] VITALS: BP 145/84; PULSE 70; RESP 20; TEMP 98.1; O2SAT 100
[2017-02-27 20:00] VITALS: BP 110/60; PULSE 79; RESP 18; TEMP 98; O2SAT 96
[2017-02-28 02:02] VITALS: BP 98/58; PULSE 83; RESP 16; TEMP 97.9; O2SAT 94
[2017-02-28] MEDS: MORPHINE SULFATE 15 MG TAB PO PRN ×3 (03:45→14:47)
[2017-02-28 08:00] VITALS: BP 112/67; PULSE 80; RESP 21; TEMP 97.7; O2SAT 93
[2017-02-28] MEDS: PREGABALIN 100 MG CAP PO SCH ×2 (08:31→12:56)
[2017-02-28] MEDS: PANTOPRAZOLE SOD 40 MG DELAYED RELEASE TAB PO SCH (08:32)
[2017-02-28] MEDS: SODIUM CHLORIDE 0.9% FLUSH 10 ML FLUSH IV FLUSH SCH (08:33)
[2017-02-28 12:00] VITALS: BP 108/68; PULSE 82; RESP 19; TEMP 97.5; O2SAT 94
[2017-02-28 15:50] VITALS: RESP 18
[2017-02-28] MEDS ORDERED: VITA10002 PO (16:14)
[2017-02-28] MEDS ORDERED: MEDR8TAB PO (16:14)
--- NOTE | 2017-02-28 16:15 | HHI.DCPOC ---
Discharge Care Plan Diagnosis: (1) B12 deficiency (2) Cephalgia (3) Neurological complaint (4) Hypertension (5) Paresthesia Goals to Promote Your Health * To prevent worsening of your condition and complications * To maintain your health at the optimal level Directions to Meet Your Goals Take your medications as prescribed Follow your dietary instruction Follow activity as directed Keep your appointments as scheduled Take your immunizations and boosters as scheduled If your symptoms worsen call your PCP, if no PCP go to Urgent Care Center or Emergency Room Smoking is Dangerous to Your Health. Avoid second hand smoke Call the 24-hour hour crisis hotline for domestic abuse at Willie Zelaya MD Feb 28, 2017 16:15
[2017-02-28] MEDS ORDERED: HYDR-3288 PO (16:18)
== END 2017-02-28 17:41 | disposition home or self-care (01) | DRG 103 ==
LOC: PHED 19:59 → PHEDA 21:24 → PH3B 22:22
PROVIDERS: ADMIT Hospitalist; ATTEND Hospitalist
DX: R51 Headache (principal); I10 Essential (primary) hypertension; E53.8 Deficiency of other specified B group vitamins; F32.9 Major depressive disorder, single episode, unspecified; F41.9 Anxiety disorder, unspecified; F17.210 Nicotine dependence, cigarettes, uncomplicated; M17.10 Unilateral primary osteoarthritis, unspecified knee; K58.9 Irritable bowel syndrome, unspecified; I25.2 Old myocardial infarction
CPT/HCPCS: 72141; 72157; 72158; 72197; 80048; 80053; 81001; 82607; 83921; 84702; 85025; 85610; 85730; 86038; 86235; 86592; 96365; A9579; J2060; J2930; J3030; J3420

== ENCOUNTER 2017-11-12 07:08 | Day surgery (SDC) | payer OTHER ==
[~2017-11-12 07:08] MED LIST changes: -FURO1TAB62 PO; +HYDR-3288 PO; -HYDR-3533 PO; -NORC5TAB PO; -OMEP20TA PO; +OMEP20TA93 PO; -POTA-163 PO; +VITA10002 PO; -VOLT100T PO
[2017-11-12 07:38] VITALS: BP 142/83; PULSE 72; RESP 20; TEMP 97.8; O2SAT 93
[2017-11-12] MEDS ORDERED: SODIUM CHLOR 0.9% 1000 ML INJ 1,000 ML IV SCH (07:45)
[2017-11-12] MEDS ORDERED: DOCU100C15 PO (07:49)
[2017-11-12] MEDS ORDERED: DULO1CAP PO (07:49)
[2017-11-12] MEDS ORDERED: IRON18TA PO (07:49)
[2017-11-12 08:09] LABS: AUTOMATED NEUTROPHIL # 4.6 TH/MM3 (1.8-7.7); BASOPHIL # 0.1 TH/MM3 (0-0.2); BASOPHIL % 1.2 % (0.0-2.0); EOSINOPHIL # 0.2 TH/MM3 (0-0.4); EOSINOPHIL % 3.2 % (0.0-4.0); HEMATOCRIT 30.1 % (35.0-46.0); HEMOGLOBIN 10.1 GM/DL (11.6-15.3); LYMPH % 19.9 % (9.0-44.0); LYMPHOCYTE # 1.3 TH/MM3 (1.0-4.8); MEAN CELL VOLUME 96.4 FL (80.0-100.0); MEAN CORPUSCULAR HEMOGLOBIN 32.3 PG (27.0-34.0); MEAN CORPUSCULAR HGB CONC 33.5 % (32.0-36.0); MEAN PLATELET VOLUME 10.1 FL (7.0-11.0); MONO % 8.3 % (0.0-8.0); MONOCYTE # 0.6 TH/MM3 (0-0.9); NEUT % 67.4 % (16.0-70.0); PLATELET COUNT 145 TH/MM3 (150-450); RED BLOOD COUNT 3.12 MIL/MM3 (4.00-5.30); WHITE BLOOD COUNT 6.8 TH/MM3 (4.0-11.0)
[2017-11-12 08:17] LABS: PROTHROMBIN TIME - PATIENT 9.7 SEC (9.8-11.6)
[2017-11-12 08:25] LABS: BICARBONATE 24.4 MEQ/L (21.0-32.0); CALCIUM 8.2 MG/DL (8.5-10.1); CREATININE 0.68 MG/DL (0.50-1.00)
--- NOTE | 2017-11-12 09:41 | PD.RAD ---
Post Procedure Progress Note Procedure Date: November 12, 2017 Supervising Radiologist: Shamir Rondon Proceduralist/Assist: RT Yeison(R), Other Anesthesia: Local Plan of Activity Patient to Unit: [facility] Patient Condition: Good See PACS Report for procedural detail/treatment Shamir Rondon MD November 12, 2017 09:41
[2017-11-12 09:45] VITALS: BP 141/87; PULSE 65; RESP 18; TEMP 97.7; O2SAT 96
[2017-11-12 10:17] LABS: TOTAL PROTEIN,CSF 40.2 MG/DL (15.0-45.0)
[2017-11-12 10:51] LABS: CSF LYMPHOCYTES 20 %; CSF NEUTROPHILS 80 %; RBC TUBE #4 590 /MM3; SUPERNATE COLOR TUBE #1 CLEAR (CLEAR); WBC TUBE #4 2 /MM3 (0-10)
[2017-11-12 11:30] VITALS: BP 127/79; PULSE 68; RESP 20; O2SAT 99
--- NOTE | 2017-11-12 15:27 | RADRPT ---
EXAM DATE: 11/12/2017 9:58 AM EDT AGE/SEX: 47 years / Female INDICATIONS: Patient with possible multiple sclerosis in need of lumbar puncture. CLINICAL DATA: This is the patient's initial encounter. Patient reports that signs and symptoms have been present for 7 - 11 months and indicates a pain score of 0/10. MEDICAL/SURGICAL HISTORY: Hypertension. Neuropathy.CA.Transverse myelitis. Hysterectomy. Prola psed bladder COMPARISON: No prior [place] exams available for comparison. FLUORO TIME (min): 0.29 IMAGE SERIES: 1 ACCESS SITE: L2-3 LUMBAR PUNCTURE TIME: 09 hours OPENING PRESSURE: 28 cm of water FLUID: Total volume of 9 cc of clear fluid was removed. Fluid was sent to lab for ordered studies. . . PROCEDURE: 1. Fluoroscopic guided lumbar puncture. 2. Recording of opening pressure. The risks, benefits and alternatives to the procedure were explained and verbal and written consent w as obtained. The site was prepped in sterile fashion. Full sterile technique was used, including ca p, mask, sterile gloves and gown and a large sterile sheet. Hand hygiene and 2% chlorhexidine and/or betadine/alcohol prep was utilized per protocol for cutaneous antisepsis. The skin and subcutaneous tissues were infiltrated with local anesthetic solution. With fluoroscopic guidance the lumbar thecal sac was punctured at the above level described above and the opening pressure was recorded. The above described fluid was removed without difficulty. The patient tolerated the procedure well and there were no complications. CONCLUSION: 1. Uncomplicated fluoroscopically guided lumbar puncture with pressures as above. Electronically signed by: Shamir Rondon MD 11/12/2017 3:25 PM EDT
== END 2017-11-12 11:35 | disposition home or self-care (01) ==
LOC: HROP 07:08 → HRIP 07:18 → HROP 11:35
PROVIDERS: ATTEND Specialist
DX: G37.3 Acute transverse myelitis in demyelinating disease of central nervous system (principal); I10 Essential (primary) hypertension; I25.2 Old myocardial infarction; G62.9 Polyneuropathy, unspecified
CPT/HCPCS: 62270; 77003; 80048; 82945; 84157; 85025; 85610; 85730; 86592; 87070; 87205; 87476; 89051; J7030

== ENCOUNTER 2017-11-15 15:10 | Emergency (ER) | payer OTHER ==
[~2017-11-15] VITALS: Ht 160 cm; Wt 111.0 kg
[~2017-11-15 15:10] MED LIST changes: +DOCU100C15 PO; +DULO1CAP PO; +IRON18TA PO; -MEDR8TAB PO
[2017-11-15 15:20] VITALS: BP 137/68; PULSE 73; RESP 18; TEMP 97.9; O2SAT 95
[2017-11-15 15:30] VITALS: O2SAT 97
--- NOTE | 2017-11-15 15:37 | PD ---
HPI Chief Complaint: Headache Time Seen by Provider: 15:33 Travel History International Travel<30 days: No Contact w/Intl Traveler<30days: No Traveled to known affect area: No History of Present Illness HPI had outpatient LP to rule out MS, and since she has had this headache. Allergy to Tylenol and oxycodone Past medical history significant for transverse myelitis spinal cord lesion, [place] , syncope, migraine, cardiac catheterization hypertension, PFSH Past Medical History Hx Anticoagulant Therapy: No Arthritis: Yes (left knee) Autoimmune Disease: No Anxiety: Yes Depression: Yes Heart Rhythm Problems: No Cancer: No Cardiac Catheterization: Yes Cardiovascular Problems: Yes ([place] ) Chest Pain: No Congestive Heart Failure: No Cerebrovascular Accident: No Diabetes: No Diminished Hearing: No Endocrine: No GERD: No Genitourinary: No Hiatal Hernia: No Hypertension: Yes Immune Disorder: No Neurologic: Yes (Transverse myelitis, spinal cord lesion ) Psychiatric: Yes (Mood disorder ) Reproductive: No Respiratory: No Immunizations Current: Yes Migraines: Yes Myocardial Infarction: Yes Seizures: No Ulcer: No Influenza Vaccination: No ?: Not Menopausal: Yes Tubal Ligation: Yes Past Surgical History Abdominal Surgery: Yes (hysterectomy) Body Medical Devices: bladder sling Cardiac Surgery: No Ear Surgery: No Endocrine Surgery: No Eye Surgery: No Genitourinary Surgery: Yes (Bladder sling) Hysterectomy: Yes Oral Surgery: No Thoracic Surgery: No Other Surgery: Yes (LUMBAR PUNCTURE 11/12/17) Social History Alcohol Use: No Tobacco Use: Yes (1 PPD) Substance Use: No Allergies-Medications (Allergen,Severity, Reaction): Coded Allergies: acetaminophen (Verified Allergy, Intermediate, Nausea/Vomiting, 11/15/17) oxycodone (Verified Allergy, Intermediate, Nausea/Vomiting, 11/15/17) Reported Meds & Prescriptions Reported Meds & Active Scripts Active Vitamin B-12 ER (Cyanocobalamin) 1,000 Mcg Tab 1,000 Mcg PO DAILY Reported Iron (Ferrous Sulfate) 18 Mg Tab Unknown Dose PO DAILY Duloxetine DR (Duloxetine HCl) 20 Mg Capdr 20 Mg PO BID Docusate Sodium 100 Mg Cap 100 Mg PO BID Lyrica (Pregabalin) 200 Mg Cap 200 Mg PO TID Omeprazole 20 Mg Tab 40 Mg PO BID Lisinopril 10 Mg Tab 40 Mg PO BID Cardizem CD 24 HR (Diltiazem CD 24 HR) 240 Mg Caper 240 Mg PO DAILY Physical Exam Narrative GENERAL: SKIN: Warm and dry. HEAD: Atraumatic. Normocephalic. EYES: Pupils equal and round. No scleral icterus. No injection or drainage. ENT: No nasal bleeding or discharge. Mucous membranes pink and moist. NECK: Trachea midline. No JVD. CARDIOVASCULAR: Regular rate and rhythm. RESPIRATORY: No accessory muscle use. Clear to auscultation. Breath sounds equal bilaterally. GASTROINTESTINAL: Abdomen soft, non-tender, nondistended. MUSCULOSKELETAL: Extremities without clubbing, cyanosis, or edema. No obvious deformities. NEUROLOGICAL: Awake and alert. No obvious cranial nerve deficits. Motor grossly within normal limits. Five out of 5 muscle strength in the arms and legs. Normal speech. PSYCHIATRIC: Appropriate mood and affect; insight and judgment normal. Data Data Last Documented VS Vital Signs Date Time Temp Pulse Resp B/P (MAP) Pulse Ox O2 Delivery O2 Flow Rate FiO2 11/15/17 15:30 97 Room Air 11/15/17 15:20 97.9 73 18 137/68 (91) Orders Orders Ct Brain W/O Iv Contrast(Rout) (11/15/17 15:45) Ecg Monitoring (11/15/17 15:45) Iv Access Insert/Monitor (11/15/17 15:45) Oximetry (11/15/17 15:45) Ondansetron Odt (Zofran Odt) (11/15/17 15:45) Sodium Chlor 0.9% 1000 Ml Inj (Ns 1000 M (11/15/17 15:45) Morphine Inj (Morphine Inj) (11/15/17 15:45) Invasive Rad Dept Consult (11/15/17 ) Morphine Inj (Morphine Inj) (11/15/17 17:45) MDM Medical Decision Making Medical Screen Exam Complete: Yes Emergency Medical Condition: Yes Medical Record Reviewed: Yes Differential Diagnosis Cephalgia versus CSF leak versus post-LP headache Narrative Course Patient is neurologically intact and moving all extremities well, feels better after medication and fluids. This case was advised discussed at length with radiologist who recommended that if pain still rate remains to contact phone number and she will be scheduled for a blood patch to be placed by anesthesiology. Patient understood instructions CT head neg for major csf leak as interpreted by radiologist Diagnosis Primary Impression: Cephalgia Qualified Codes: R51 - Headache Patient Instructions: Acute Headache (ED), General Instructions Disposition: 01 DISCHARGE HOME Condition: Stable Franky Garcia MD Nov 15, 2017 15:37
[2017-11-15] MEDS ORDERED: SODIUM CHLOR 0.9% 1000 ML INJ 1,000 ML IV ONE (15:45)
[2017-11-15] MEDS ORDERED: ONDANSETRON ODT 4 MG TAB PO/SL ONE (15:45)
[2017-11-15] MEDS ORDERED: MORPHINE SULFATE 4 MG/ML INJ IV PUSH ONE (15:45)
--- NOTE | 2017-11-15 16:50 | RADRPT ---
EXAM DATE: 11/15/2017 4:40 PM EDT AGE/SEX: 47 years / Female INDICATIONS: Posterior head pain. Status post lumbar puncture four days ago. CLINICAL DATA: This is the patient's initial encounter. Patient reports that signs and symptoms have been present for 4 - 6 days and indicates a pain score of 3/10. MEDICAL/SURGICAL HISTORY: . Myocardial infarct. Transverse myelitis. Spinal cord lesion. Hysterect reynaldo. Bladder sling. RADIATION DOSE: 56.93 CTDI (mGy) COMPARISON: No prior [place] exams available for comparison. TECHNIQUE: CT of the head without contrast. Using automated exposure control and adjustment of the mA and/or kV according to patient size, radiation dose was kept as low as reasonably achievable to ob tain optimal diagnostic quality images. FINDINGS: Cerebrum: The ventricles are normal for age. No evidence of midline shift, mass lesion, hemorrhage or acute infarction. No extraaxial fluid collections are seen. Posterior Fossa: The cerebellum and brainstem are intact. The 4th ventricle is midline. The cerebe llopontine angle is unremarkable. Extracranial: The visualized portion of the orbits is intact. Skull: The calvaria is intact. No evidence of skull fracture. CONCLUSION: Negative noncontrast head CT. No bleed or overt evidence of intracranial hypotension. How ever, in the setting of headache after recent lumbar puncture, a small CSF leak is still in the diffe rential. A blood patch can be scheduled with special procedures on an outpatient basis if clinical co ncern continues. Electronically signed by: Simon Davis MD 11/15/2017 4:48 PM EDT
[2017-11-15] MEDS ORDERED: MORPHINE SULFATE 2 MG/ML SYRINGE IV PUSH ONE (17:45)
[2017-11-15 17:56] VITALS: BP 121/65; PULSE 65; RESP 18; O2SAT 94
== END 2017-11-15 18:59 | disposition home or self-care (01) ==
LOC: PHED 15:10
DX: R51 Headache (principal); G37.3 Acute transverse myelitis in demyelinating disease of central nervous system; I25.2 Old myocardial infarction; M17.12 Unilateral primary osteoarthritis, left knee; F41.9 Anxiety disorder, unspecified; F32.9 Major depressive disorder, single episode, unspecified; I10 Essential (primary) hypertension; F39 Unspecified mood [affective] disorder; F17.200 Nicotine dependence, unspecified, uncomplicated
CPT/HCPCS: 70450; 96374; 96376; 99284; J2270; J7030

== ENCOUNTER 2017-11-16 04:43 | Emergency (ER) | payer OTHER ==
[~2017-11-16] VITALS: Ht 160 cm; Wt 100.0 kg
[~2017-11-16 04:43] MED LIST changes: -HYDR-3288 PO
[2017-11-16 05:04] VITALS: BP 156/86; PULSE 70; RESP 20; TEMP 97.1; O2SAT 95
--- NOTE | 2017-11-16 05:57 | PD ---
HPI Chief Complaint: Headache Time Seen by Provider: 05:46 Travel History International Travel<30 days: No Contact w/Intl Traveler<30days: No Traveled to known affect area: No History of Present Illness HPI 47yo F presents to the ED concerning a headache x5days. Pt states she had an LP performed on to diagnose possible multiple sclerosis. Pt states that she started have a headache following the LP, that is localized to the back of her head, and described as a pulling sensation. She states the headache is aggravated by sitting up or changing position too rapidly. She also states that starting two days ago, she started to experience nausea that started as intermittent and has now progressed to being constant. She denies any vomiting. Pt was seen at [facility] ED yesterday, and was told that if symptoms worsened or continued she should report to [facility] ED for a blood patch. Pt denies any fevers, blurry vision, neck pain or stiffness, chest pain, SOB, or new focal neurologic deficits. PFSH Past Medical History Hx Anticoagulant Therapy: No Arthritis: Yes (left knee) Autoimmune Disease: No Anxiety: Yes Depression: Yes Heart Rhythm Problems: No Cancer: No Cardiac Catheterization: Yes Cardiovascular Problems: Yes (HT[place], [place]) Chest Pain: No Congestive Heart Failure: No Cerebrovascular Accident: No Diabetes: No Diminished Hearing: No Endocrine: No GERD: No Genitourinary: No Hiatal Hernia: No Hypertension: Yes Immune Disorder: No Neurologic: Yes (Transverse myelitis, spinal cord lesion ) Psychiatric: Yes (Mood disorder ) Reproductive: No Respiratory: No Immunizations Current: Yes Migraines: Yes Myocardial Infarction: Yes Seizures: No Ulcer: No ?: Not Menopausal: Yes Tubal Ligation: Yes Past Surgical History Abdominal Surgery: Yes (hysterectomy) Body Medical Devices: bladder sling Cardiac Surgery: No Ear Surgery: No Endocrine Surgery: No Eye Surgery: No Genitourinary Surgery: Yes (Bladder sling) Hysterectomy: Yes Oral Surgery: No Thoracic Surgery: No Other Surgery: Yes (LUMBAR PUNCTURE 11/12/17) Social History Alcohol Use: No Tobacco Use: Yes (1 PPD) Substance Use: No Allergies-Medications (Allergen,Severity, Reaction): Coded Allergies: acetaminophen (Verified Allergy, Intermediate, Nausea/Vomiting, 11/15/17) oxycodone (Verified Allergy, Intermediate, Nausea/Vomiting, 11/15/17) Reported Meds & Prescriptions Reported Meds & Active Scripts Active Vitamin B-12 ER (Cyanocobalamin) 1,000 Mcg Tab 1,000 Mcg PO DAILY Reported Iron (Ferrous Sulfate) 18 Mg Tab Unknown Dose PO DAILY Duloxetine DR (Duloxetine HCl) 20 Mg Capdr 20 Mg PO BID Docusate Sodium 100 Mg Cap 100 Mg PO BID Lyrica (Pregabalin) 200 Mg Cap 200 Mg PO TID Omeprazole 20 Mg Tab 40 Mg PO BID Lisinopril 10 Mg Tab 40 Mg PO BID Cardizem CD 24 HR (Diltiazem CD 24 HR) 240 Mg Caper 240 Mg PO DAILY Physical Exam Narrative GENERAL: Well developed and well nourished female in acute distress. Alert and oriented x3. SKIN: Warm and dry. HEAD: Atraumatic. Normocephalic. EYES: Pupils equal and round. No scleral icterus. No injection or drainage. Photophobia. CARDIOVASCULAR: Regular rate and rhythm. No gallops, rubs or murmurs. RESPIRATORY: No accessory muscle use. Clear to auscultation. Breath sounds equal bilaterally. GASTROINTESTINAL: Abdomen soft, non-tender, nondistended. Hepatic and splenic margins not palpable. MUSCULOSKELETAL: Extremities without clubbing, cyanosis, or edema. No obvious deformities. NEUROLOGICAL: Awake and alert. No obvious cranial nerve deficits. Motor grossly within normal limits. Decreased muscle strength in upper extremities and RLE. Decreased sensation in LUE. Normal speech. PSYCHIATRIC: Appropriate mood and affect; insight and judgment normal. Data Data Last Documented VS Vital Signs Date Time Temp Pulse Resp B/P (MAP) Pulse Ox O2 Delivery O2 Flow Rate FiO2 11/16/17 05:04 97.1 70 20 156/86 (109) 95 Orders Orders Sodium Chlor 0.9% 1000 Ml Inj (Ns 1000 M (11/16/17 06:00) Prochlorperazine Inj (Compazine Inj) (11/16/17 06:00) Morphine Inj (Morphine Inj) (11/16/17 06:00) Anesthesia Consult (11/16/17 ) [facility] Medical Decision Making Medical Screen Exam Complete: Yes Emergency Medical Condition: Yes Differential Diagnosis Migraine versus post LP headache versus hypertensive headache Narrative Course 47-year-old female status post lumbar puncture to workup for possible multiple sclerosis on 11/12/2017. Patient has had passive postural headaches since then. She was seen down at [place] emergency department yesterday and was told that the headache persisted she should come here for a blood patch. The patient is here stating the headache has not gotten better and is. She has been given 1 L of IV fluid and 10 mg of Compazine and 2 mg of morphine. She will have her blood patch performed by the anesthesiologist. I discussed the case with the on-call overnight anesthesiologist and he will arrange for the 7 AM anesthesiologist to perform the procedure. I anticipate the patient will be discharged after the procedure. She will be evaluated by the oncoming physician and if she is comfortable, she can safely be discharged with follow- up with her primary care physician. Diagnosis Primary Impression: Post LP headache Additional Impression: History of hypertension Darien Acosta MD Nov 16, 2017 05:57
[2017-11-16] MEDS ORDERED: PROCHLORPERAZINE INJ 10 MG/2 ML VIAL IV PUSH ONE (06:00)
[2017-11-16] MEDS ORDERED: SODIUM CHLOR 0.9% 1000 ML INJ 1,000 ML IV ONE (06:00)
[2017-11-16] MEDS ORDERED: MORPHINE SULFATE 4 MG/ML INJ IV PUSH ONE (06:00)
[2017-11-16] MEDS ORDERED: LISINOPRIL 20 MG TAB PO ONE (07:30)
[2017-11-16 08:07] VITALS: BP_SYST 111; BP_DIAS 58; BP_DIAS 68; PULSE 76; RESP 18; O2SAT 97
[2017-11-16] MEDS ORDERED: LACTATED RINGER'S 1000 ML IV PRN (09:45)
[2017-11-16] MEDS ORDERED: METOPROLOL TARTRATE 25 MG TAB PO PRN (09:45)
[2017-11-16] MEDS ORDERED: POVIDONE IODINE 5% (ANTISEPSIS KIT) 4 APPLICATIONS EACH NARE PRN (09:45)
[2017-11-16] MEDS ORDERED: CHLORHEXIDINE GLUCONATE 2 % 1 PACK (2 CLOTHS) TOPICAL PRN (09:45)
[2017-11-16] MEDS ORDERED: INSULIN HUMAN REGULAR 1,000 UNITS/10 ML VIAL SQ PRN (09:45)
[2017-11-16] MEDS ORDERED: SODIUM CHLORID 0.9% 500 ML IV PRN (09:45)
[2017-11-16] MEDS ORDERED: MIDAZOLAM HCL 5 MG/5 ML VIAL ONE (10:09)
[2017-11-16] MEDS ORDERED: DO NOT ADM ANY ANTICOAGULANT DRUGS PRN ×2 (10:11→11:15)
[2017-11-16] MEDS ORDERED: MIDAZOLAM HCL 5 MG/5 ML VIAL IV ONE (11:00)
[2017-11-16 11:21] VITALS: BP 145/70; PULSE 84; RESP 16; TEMP 98.1; O2SAT 92
== END 2017-11-16 11:36 | disposition home or self-care (01) ==
LOC: HOR 04:43 → NEPE 11:36
DX: G97.1 Other reaction to spinal and lumbar puncture (principal); I10 Essential (primary) hypertension; F17.210 Nicotine dependence, cigarettes, uncomplicated; Y84.4 Aspiration of fluid as the cause of abnormal reaction of the patient, or of later complication, without mention of misadventure at the time of the procedure; Z88.5 Allergy status to narcotic agent
CPT/HCPCS: 62273; 96374; 96375; 99284; J0780; J2250; J2270; J7030

== ENCOUNTER 2017-12-01 20:23 | Emergency (ER) | payer OTHER ==
[~2017-12-01] VITALS: Ht 160 cm; Wt 112.0 kg
[2017-12-01 20:40] VITALS: BP 126/56; PULSE 92; RESP 18; TEMP 97.4; O2SAT 95
[2017-12-01 22:32] VITALS: BP 120/60; PULSE 90; RESP 16; O2SAT 96
[2017-12-01 23:10] VITALS: BP 118/77
--- NOTE | 2017-12-01 23:18 | PD ---
HPI Chief Complaint: Edema Time Seen by Provider: 23:07 Travel History International Travel<30 days: No Contact w/Intl Traveler<30days: No Traveled to known affect area: No History of Present Illness HPI The patient is a 47-year-old female that complains of burning in her legs and swelling in her leg since yesterday. The patient already has a history of transverse myelitis and is on Lyrica for apparent peripheral neuropathy. She does not have a history of congestive heart failure. She is due to see Dr. Troy on the of this month to follow-up her transverse myelitis. She is not on steroids at this time and has been off steroids for months. She denies any fever. PFSH Past Medical History Hx Anticoagulant Therapy: No Arthritis: Yes (left knee) Autoimmune Disease: No Anxiety: Yes Depression: Yes Heart Rhythm Problems: No Cancer: No Cardiac Catheterization: Yes Cardiovascular Problems: Yes (HTN, NH) Chest Pain: No Congestive Heart Failure: No Cerebrovascular Accident: No Diabetes: No Diminished Hearing: No Endocrine: No GERD: No Genitourinary: No Hiatal Hernia: No Hypertension: Yes Immune Disorder: No Neurologic: Yes (Transverse myelitis, spinal cord lesion ) Psychiatric: Yes (Mood disorder ) Reproductive: No Respiratory: No Immunizations Current: Yes Migraines: Yes Myocardial Infarction: Yes Seizures: No Ulcer: No Tetanus Vaccination: Unknown Influenza Vaccination: No ?: Not Menopausal: Yes Tubal Ligation: Yes Past Surgical History Abdominal Surgery: Yes (hysterectomy) Body Medical Devices: bladder sling Cardiac Surgery: No Ear Surgery: No Endocrine Surgery: No Eye Surgery: No Genitourinary Surgery: Yes (Bladder sling) Hysterectomy: Yes Oral Surgery: No Thoracic Surgery: No Other Surgery: Yes (LUMBAR PUNCTURE 11/12/17) Social History Alcohol Use: No Tobacco Use: Yes (1 PPD) Substance Use: No Allergies-Medications (Allergen,Severity, Reaction): Coded Allergies: acetaminophen (Verified Allergy, Intermediate, Nausea/Vomiting, 12/01/17) oxycodone (Verified Allergy, Intermediate, Nausea/Vomiting, 12/01/17) Reported Meds & Prescriptions Reported Meds & Active Scripts Active Vitamin B-12 ER (Cyanocobalamin) 1,000 Mcg Tab 1,000 Mcg PO DAILY Reported Iron (Ferrous Sulfate) 18 Mg Tab Unknown Dose PO DAILY Duloxetine DR (Duloxetine HCl) 20 Mg Capdr 20 Mg PO BID Docusate Sodium 100 Mg Cap 100 Mg PO BID Lyrica (Pregabalin) 200 Mg Cap 200 Mg PO TID Omeprazole 20 Mg Tab 40 Mg PO BID Lisinopril 10 Mg Tab 40 Mg PO BID Cardizem CD 24 HR (Diltiazem CD 24 HR) 240 Mg Caper 240 Mg PO DAILY Review of Systems Except as stated in HPI: all other systems reviewed are Neg Physical Exam Narrative GENERAL: Well-nourished, alert and oriented, obese patient. SKIN: Focused skin assessment warm/dry. There is no redness or evidence of cellulitis on her legs. They do not feel hot. HEAD: Normocephalic. EYES: No scleral icterus. No injection or drainage. NECK: Supple, trachea midline. No JVD or lymphadenopathy. CARDIOVASCULAR: Regular rate and rhythm without murmurs, gallops, or rubs. RESPIRATORY: Breath sounds equal bilaterally. No accessory muscle use. GASTROINTESTINAL: Abdomen soft, non-tender, nondistended. MUSCULOSKELETAL: No cyanosis, there is no real edema, no pitting edema. The patient can perceive swelling in her legs and ankles. Homans sign is negative and there is no cord palpated in the cast. There is no redness and there is no heat over the skin of the lower legs. BACK: Nontender without obvious deformity. No CVA tenderness. Data Data Last Documented VS Vital Signs Date Time Temp Pulse Resp B/P (MAP) Pulse Ox O2 Delivery O2 Flow Rate FiO2 12/01/17 22:32 90 16 120/60 (80) 96 Room Air 12/01/17 20:40 97.4 MDM Medical Decision Making Medical Screen Exam Complete: Yes Emergency Medical Condition: Yes Medical Record Reviewed: Yes Differential Diagnosis Cellulitis, congestive heart failure, peripheral neuropathy, peripheral venous obstruction Narrative Course The patient appears to have mild swelling in her legs that is been going on for 1 day. There is no pitting edema and there is no evidence of cellulitis. The patient simply has leg swelling and the pain is likely the same pain that she has had before with her apparent peripheral neuropathy. Plan: The patient can take the Lasix that she already has. She can increase this to 20 mg twice daily instead of once daily. She should elevate the legs above her heart. She should follow-up with Dr. Troy as scheduled or perhaps earlier. Diagnosis Primary Impression: Localized swelling of both lower legs Additional Impression: Peripheral neuropathy Additional Instructions: Follow-up with Dr. Troy as soon as possible. Elevate the legs above your heart , this is the only way that the swelling will go down. As we discussed, you can increase the Lasix to 20 mg twice daily. Also take the potassium twice daily when you do this. Med/Other Pt SpecificInfo: No Change to Meds Disposition: 01 DISCHARGE HOME Condition: Rony Cole MD Dec 01, 2017 23:18
== END 2017-12-01 23:30 | disposition home or self-care (01) ==
LOC: PHED 20:23
DX: M79.89 Other specified soft tissue disorders (principal); G62.9 Polyneuropathy, unspecified; I10 Essential (primary) hypertension; F17.210 Nicotine dependence, cigarettes, uncomplicated; F32.9 Major depressive disorder, single episode, unspecified; I25.2 Old myocardial infarction; Z90.710 Acquired absence of both cervix and uterus
CPT/HCPCS: 99281